=== PATIENT | female | born 1955 | race Caucasian/White ===

== ENCOUNTER 2020-11-10 17:37 | Inpatient (IN) | payer BC, MEDICAID, SELFPAY ==
[~2020-11-10] VITALS: Ht 165.1 cm; Wt 56.2 kg
[2020-11-10] MEDS: cefTRIAXone 1 GM IVPB PREMIX 50 ML IV SCH (00:30)
[2020-11-10 17:54] VITALS: BP_SYST 152
--- NOTE | 2020-11-10 17:56 | NUR ---
Pt brought by self,A&Ox4, pt presents to ER with SOB, congestion x 3 weeks, low O2 of 87 % room air , afebrile, skin pink and warm, cap refill <3, ambulatory , speaking in full sentences, MD notified
--- NOTE | 2020-11-10 17:58 | NUR ---
Pt placed on 2L NC since O2 87-88% room air, pt A&OxMD Roc notified, awaiting for med availability.
--- NOTE | 2020-11-10 17:59 | NUR ---
Sonja Covid test sent to lab at this time.
--- NOTE | 2020-11-10 18:05 | NUR ---
Dr Bolden evaluating patient in the tent
[2020-11-10] MEDS ORDERED: ENOXAPARIN SODIUM 60 MG/0.6 ML SYRINGE SUBCUT ONE (18:15)
[2020-11-10] MEDS ORDERED: AZITHROMYCIN 500 MG in NS 250 ML IV ONE (18:15)
[2020-11-10] MEDS ORDERED: DEXAMETHASONE SOD PHOSPHATE 4 MG/ML VIAL IVP ONE (18:15)
--- NOTE | 2020-11-10 18:18 | NUR ---
Report given to Idalia CADET
--- NOTE | 2020-11-10 18:35 | NUR ---
# 20 gauge angiocath placed to LAC. Use of asceptic technique. Opsite placed over site. Blood return noted. Blood, CULTURES AND LACTIC ACID for lab drawn from site. Flushed with 10 cc of normal saline. No evidence of infiltration noted. Patient tolerated well.
--- NOTE | 2020-11-10 18:42 | NUR ---
Oxygen applied at 4 L per minute per NC. O2 sats 95% by pulse oximetry.
[2020-11-10 19:04] LABS: BASOPHILS # (AUTO) 0.1 K/uL (0.0-0.2); BASOPHILS % (AUTO) 1.1 % (0.0-2.0); EOSINOPHILS % (AUTO) 0.5 % (0.0-4.0); HEMATOCRIT 40.1 % (36-48); HEMOGLOBIN 13.6 g/dL (12.0-16.0); LYMPHOCYTES # (AUTO) 1.2 K/uL (1.0-5.5); LYMPHOCYTES % (AUTO) 13.3 % (20.5-51.5); MEAN CORPUSCULAR HEMOGLOBIN 29 pg (27-31); MEAN CORPUSCULAR HGB CONC 34 % (32-36); MEAN CORPUSCULAR VOLUME 86 fL (79.0-98.0); MONOCYTES # (AUTO) 0.6 K/uL (0.0-1.0); NEUTROPHILS # (AUTO) 6.8 K/uL (1.8-7.7); NEUTROPHILS % (AUTO) 78.1 % (40.0-70.0); RED BLOOD CELL COUNT(AUTO) 4.65 MIL/uL (4.2-6.2); RED CELL DISTRIBUTION WIDTH 14.2 % (9.0-15.0); WHITE BLOOD COUNT (AUTO) 8.7 K/uL (4.8-10.8)
[2020-11-10 19:08] LABS: CREATININE 0.74 mg/dL (0.55-1.30)
[2020-11-10 19:10] LABS: PLATELET COUNT (AUTO) 815 K/uL (130-430)
--- NOTE | 2020-11-10 19:10 | NUR ---
critical lab reporting - platelets 815. aware.
[2020-11-10 19:22] LABS: ALBUMIN 2.8 g/dL (3.4-4.8); TOTAL BILIRUBIN 0.6 mg/dL (0.0-1.0)
[2020-11-10 19:31] LABS: FIBRINOGEN 941 mg/dL (200-400)
[2020-11-10] MEDS ORDERED: DEXAMETHASONE SOD PHOSPHATE 10 MG/ML VIAL ONE (19:35)
[2020-11-10] MEDS ORDERED: AZITHROMYCIN 500 MG/VIAL (ZITHROMAX) IV ONE (19:35)
--- NOTE | 2020-11-10 19:50 | NUR ---
PT TALKING ON HER PHONE MEDS GIVEN ORDERED
[2020-11-10 19:53] LABS: POTASSIUM 2.8 mmol/L (3.5-5.1)
[2020-11-10] MEDS ORDERED: KCL 20 mEq in 100 mL (PREMIX) 100 ML IV ONE (20:00)
[2020-11-10 20:02] LABS: C-REACTIVE PROTEIN QUANT 25.6 mg/dL (0-0.5)
--- NOTE | 2020-11-10 21:15 | NUR ---
Admit orders obtained from Dr. Khan
[2020-11-10 23:06] LABS: ERYTHROCYTE SEDIMENTATION RATE 91 MM/HR (0-20)
[2020-11-10] MEDS ORDERED: ONDANSETRON HCL 4 MG/2 ML VIAL IVP PRN (23:30)
[2020-11-10] MEDS ORDERED: ACETAMINOPHEN 325 MG TABLET PO PRN (23:30)
[2020-11-10] MEDS ORDERED: HYDROcodone/ACETAMIN 10-325 MG TAB PO PRN (23:30)
[2020-11-10] MEDS ORDERED: NALOXONE HCL 0.4 MG/ML AMP (NARCAN) IVP PRN ×2 (23:30)
[2020-11-10] MEDS ORDERED: LORazepam 2 MG/ML VIAL IVP PRN (23:30)
[2020-11-10] MEDS ORDERED: ALBUTEROL SULFATE 0.083% 2.5 MG/3 ML VIAL.NEB INH PRN (23:30)
[2020-11-10] MEDS ORDERED: AZITHROMYCIN 500 MG in NS 250 ML IV SCH (23:30)
[2020-11-10] MEDS ORDERED: HYDROcodone/ACETAMIN 5-325 MG TAB (NORCO/ VICODIN) PO PRN (23:30)
--- NOTE | 2020-11-10 23:40 | NUR ---
PT ADMIT TO [id number]
[2020-11-10] MEDS ORDERED: KCL 40 mEq in 100 mL (PREMIX) 100 ML IV ONE (23:45)
[2020-11-11] VITALS: BP_SYST 121
--- NOTE | 2020-11-11 00:03 | NUR ---
PT TRANSFERRED TO TELE RM 117B VIA [facility] WITH RN PT ON MONITORB BEDSIDE REPORT GIVEN STABLE
--- NOTE | 2020-11-11 00:10 | NUR ---
ADMISSION NOTE Received patient from ER via gurney. Patient admitted with diagnosis of COVID/PNA. Patient is awake, alert, oriented X 4. Patient oriented to hospital room, call light, toileting, pain management and safety-teach back done.Personal belongings checked and Belongings List documented. Call light within reach. Will continue to monitor.
--- NOTE | 2020-11-11 00:45 | NUR ---
IV antibiotic started. patient is tolerating well.
[2020-11-11] MEDS ORDERED: KCL 20 mEq in NS 1000 mL 1,000 ML IV SCH (01:00)
[2020-11-11] MEDS ORDERED: cefTRIAXone 1 GM IVPB PREMIX 50 ML IV ONE (01:08)
[2020-11-11 01:09] VITALS: BP_SYST 144
--- NOTE | 2020-11-11 02:59 | NUR ---
CONSULT: CONSULT CALLED FOR DR. MARTINE Elmore SPOKE WITH SAGAR SOSA REASON FOR CONSULT: PNEUMONI REQUESTING CONSULT: DR. 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
[2020-11-11] MEDS: NORMAL SALINE 5 ML DISP.SYRIN IVF SCH ×3 (03:08→21:31)
[2020-11-11] MEDS ORDERED: KCL 40 mEq in 100 mL (PREMIX) 100 ML IV ONE (03:15)
--- NOTE | 2020-11-11 03:15 | NUR ---
IV POTASSIUM STARTED. PATIENT REPORTS BURNING SENSATION AT IV SITE, DECREASED THE RATE. PROVIDED ICE BAG. PATIENT TOLERATED WELL. WILL CONTINUE TO MONITOR.
[2020-11-11 05:39] VITALS: BP_SYST 144
[2020-11-11] MEDS ORDERED: NORMAL SALINE 5 ML DISP.SYRIN IVF SCH (06:00)
--- NOTE | 2020-11-11 06:49 | NUR ---
CLOSING NOTE: PATIENT IS IN BED, AWAKE. RESPIRATION IS UNLABORED AND SYMMETRICAL. NO S/S ACUTE DISTRESS NOTED. SAFETY,FALL, CONTACT, AND DROPLET PRECAUTION MAINTAINED. CALL LIGHT IS WITHIN PATIENT REACH. ALL NEEDS MET THROUGHOUT SHIFT. WILL ENDORSE PATIENT'S PLAN OF CARE TO DAY SHIFT RN.
[2020-11-11] MEDS: IPRATROPIUM BROM 0.5 MG/2.5 ML VIAL.NEB (ATROVENT) INH SCH ×5 (07:00→23:00)
[2020-11-11 07:15] LABS: BASOPHILS % (AUTO) 0.4 % (0.0-2.0); HEMATOCRIT 37.4 % (36-48); HEMOGLOBIN 12.6 g/dL (12.0-16.0); LYMPHOCYTES % (AUTO) 13.5 % (20.5-51.5); MEAN CORPUSCULAR HEMOGLOBIN 29 pg (27-31); MEAN CORPUSCULAR HGB CONC 34 % (32-36); MEAN CORPUSCULAR VOLUME 87 fL (79.0-98.0); MONOCYTES # (AUTO) 0.2 K/uL (0.0-1.0); MONOCYTES % (AUTO) 2.4 % (1.7-9.3); NEUTROPHILS % (AUTO) 83.7 % (40.0-70.0); RED BLOOD CELL COUNT(AUTO) 4.32 MIL/uL (4.2-6.2); RED CELL DISTRIBUTION WIDTH 13.9 % (9.0-15.0); WHITE BLOOD COUNT (AUTO) 7.2 K/uL (4.8-10.8)
[2020-11-11 07:52] LABS: PLATELET COUNT (AUTO) 791 K/uL (130-430)
--- NOTE | 2020-11-11 08:15 | NUR ---
ASSUMPTION OF CARE: RECEIVED PT A/A/OX4, DX:INADEQUATE VENTILATION, R/T COVID/PNU, AFEBRILE, VSS, NO S/S OF DISTRESS, BREATH SOUNDS ARE DIMINISHED THROUGHOUT LUNG FIELD, UNLABORED, SATURATING 90% ON 4L VIA NC, IV SITE INTACT, PATENT, NO REDNESS OR SWELLING, BRP, REORIENTED TO UNIT, CALL LIGHT PLACED WITHIN REACH, WILL CONT' TO MONITOR AND ASSESS.
[2020-11-11 08:18] LABS: ALBUMIN 2.3 g/dL (3.4-4.8); CALCIUM 9.1 mg/dL (8.4-11.0); CREATININE 0.56 mg/dL (0.55-1.30); POTASSIUM 4.1 mmol/L (3.5-5.1); TOTAL BILIRUBIN 0.3 mg/dL (0.0-1.0)
[2020-11-11] MEDS ORDERED: ENOXAPARIN SODIUM 60 MG/0.6 ML SYRINGE SUBCUT ONE (13:00)
[2020-11-11] MEDS: DEXAMETHASONE SOD PHOSPHATE 10 MG/ML VIAL IVP SCH (13:23)
[2020-11-11 16:00] VITALS: BP_SYST 143
--- NOTE | 2020-11-11 18:00 | NUR ---
CLOSING NOTES: PT REMAINS STABLE, NO SIGNIFICANT CHANGES NOTED, NEEDS MET, CALL LIGHT, WATER AND PERSONAL BELONGINGSAT BEDSIDE, WITHIN REACH, WILL CONT' TO MONITOR AND ASSESS.
[2020-11-11 19:00] VITALS: BP_SYST 127
--- NOTE | 2020-11-11 19:15 | NUR ---
change of shift.pt.presents isolation status;droplet covid 19+status.pt.presents quiescent affect;calm,resting.no c/o pain, nausea.pt.capable to ambulate/reposition self.pt.receiving the administration o2 therapy via nasal cannulae administered@ the rate 4l/min.pt.presents iv access location;lt.hand;24g iv lock.general status stable.respiratory status stable.call light/ telephone w/in access of the pt.
[2020-11-11 20:00] VITALS: BP_SYST 127
--- NOTE | 2020-11-11 20:00 | NUR ---
pt.assessed.v/s assessed values w/in normal limits.no c/o pain,nausea.i have apprised the pt.that snacks/beverages are available w/in the shift.no requests posited@this hour.iv access intact;patent iv lock.general status stable.respiratory status stable;unlabored:02-sat%=94%.pt.capable to reposition self.call light/telephone w/in access of the pt.
[2020-11-11] MEDS ORDERED: ENOXAPARIN SODIUM 80 MG/0.8 ML SYRINGE SUBCUT SCH (21:00)
--- NOTE | 2020-11-11 21:00 | NUR ---
2100pmedications administration.pt.capable to ingest the po medications w/out difficulty. Addendum: 11/12/20 at 0445 by Jeremiah Last RN i have administered rocephin abx ivpb.
[2020-11-11] MEDS: AZITHROMYCIN 500 MG in NS 250 ML IV SCH (21:30)
[2020-11-11] MEDS: ENOXAPARIN SODIUM 60 MG/0.6 ML SYRINGE SUBCUT SCH (21:31)
--- NOTE | 2020-11-11 22:00 | NUR ---
pt.assessed.pt.presents quiescent affect calm,resting.no c/o pain,nausea.pt.requested medication sleep.i have administered trazodone.i have administered zithromax abx ivpb via the iv access peripheral line.call light/telephone w/in access of the pt.
[2020-11-11] MEDS: traZODone HCL 50 MG TABLET (DESYREL) PO PRN (22:02)
[2020-11-11] MEDS: cefTRIAXone 1 GM IVPB PREMIX 50 ML IV SCH (23:30)
[2020-11-12] VITALS: BP_SYST 121
--- NOTE | 2020-11-12 | NUR ---
pt.assessed.v/s assessed values w/in normal limits.no c/o pain,nausea.no requests posited@this hour.iv access intact;patent iv lock. pt.capable to reposition self.general status stable.respiratory status stable;unlabored.o2-sat%=94%.call light/telephone w/in access of the pt.
--- NOTE | 2020-11-12 02:00 | NUR ---
pt.assessed.pt.presents quiescent affect;calm,somnolent.per flacc pain mgx pt.absent facial grimaces/body posturing. iv access intact;patent iv access intact;patent.pt.capable to reposition self.call light/telephone w/in access of the pt. 02-mon%=94%
[2020-11-12] MEDS: IPRATROPIUM BROM 0.5 MG/2.5 ML VIAL.NEB (ATROVENT) INH SCH (03:00)
--- NOTE | 2020-11-12 04:00 | NUR ---
pt.assessed.pt.presents quiescent affect;calm,somnolent.per flacc pain mgx pt.absent facial grimaces/body posturing. iv access intact;patent.iv lock.pt.capable to reposition self.general status stable;respiratory status stable;unlabored: 02-sat%=94%.call light/telephone w/in access of the pt.
[2020-11-12] MEDS: NORMAL SALINE 5 ML DISP.SYRIN IVF SCH ×3 (05:02→22:00)
--- NOTE | 2020-11-12 06:15 | NUR ---
pt.assessed.pt.presents quiescent affect;calm,resting. no c/o pain,nausea.no requests posited@this hour.pt.capable to reposition self.call light/telephone w/in access of the pt.
[2020-11-12] MEDS ORDERED: IPRATROPIUM BROM 0.5 MG/2.5 ML VIAL.NEB (ATROVENT) INH PRN (07:00)
[2020-11-12] MEDS: ALBUTEROL MDI INHALATION 8 GM INH INH SCH ×3 (07:00→15:52)
[2020-11-12 07:48] LABS: CALCIUM 9.2 mg/dL (8.4-11.0); CREATININE 0.67 mg/dL (0.55-1.30); POTASSIUM 3.6 mmol/L (3.5-5.1)
[2020-11-12 07:58] LABS: BASOPHILS # (AUTO) 0.1 K/uL (0.0-0.2); BASOPHILS % (AUTO) 0.9 % (0.0-2.0); HEMATOCRIT 35.8 % (36-48); HEMOGLOBIN 12.1 g/dL (12.0-16.0); LYMPHOCYTES # (AUTO) 1.8 K/uL (1.0-5.5); LYMPHOCYTES % (AUTO) 20.5 % (20.5-51.5); MEAN CORPUSCULAR HEMOGLOBIN 29 pg (27-31); MEAN CORPUSCULAR HGB CONC 34 % (32-36); MEAN CORPUSCULAR VOLUME 87 fL (79.0-98.0); MONOCYTES % (AUTO) 10.7 % (1.7-9.3); NEUTROPHILS # (AUTO) 6.1 K/uL (1.8-7.7); RED BLOOD CELL COUNT(AUTO) 4.11 MIL/uL (4.2-6.2); RED CELL DISTRIBUTION WIDTH 14.5 % (9.0-15.0); WHITE BLOOD COUNT (AUTO) 8.9 K/uL (4.8-10.8)
--- NOTE | 2020-11-12 08:00 | NUR ---
ASSUMPTION OF CARE: RECEIVED PT A/A/OX4, DX:INADEQUATE VENTILATION, R/T COVID/PNU, AFEBRILE, VSS, NO S/S OF DISTRESS, BREATH SOUNDS ARE DIMINISHED THROUGHOUT LUNG FIELD, UNLABORED, SATURATING 93% ON 4L VIA NC, IV SITE INTACT, PATENT, NO REDNESS OR SWELLING, BRP, REORIENTED TO UNIT, CALL LIGHT PLACED WITHIN REACH, WILL CONT' TO MONITOR AND ASSESS.
[2020-11-12 08:31] VITALS: BP_SYST 144
[2020-11-12 08:35] LABS: C-REACTIVE PROTEIN QUANT 9.5 mg/dL (0-0.5)
[2020-11-12 08:39] LABS: PLATELET COUNT (AUTO) 886 K/uL (130-430)
--- NOTE | 2020-11-12 09:08 | NUR ---
PAGED PAGED FADI ASHTON AT [phone] SPOKE WITH EXCHANGE.
[2020-11-12] MEDS: ENOXAPARIN SODIUM 60 MG/0.6 ML SYRINGE SUBCUT SCH ×2 (09:20→21:36)
[2020-11-12 10:13] LABS: FERRITIN 431 ng/mL (15-150)
[2020-11-12 10:56] LABS: ERYTHROCYTE SEDIMENTATION RATE 87 MM/HR (0-20)
[2020-11-12 11:11] LABS: NEUTROPHILS % (AUTO) 67.9 % (40.0-70.0)
[2020-11-12] MEDS: DEXAMETHASONE SOD PHOSPHATE 10 MG/ML VIAL IVP SCH (13:14)
[2020-11-12 15:56] VITALS: BP_SYST 136
--- NOTE | 2020-11-12 18:00 | NUR ---
CLOSING NOTES: PT REMAINS STABLE, NO SIGNIFICANT CHANGES NOTED, NEEDS MET, CALL LIGHT, WATER AND PERSONAL BELONGINGSAT BEDSIDE, WITHIN REACH, WILL CONT' TO MONITOR AND ASSESS.
--- NOTE | 2020-11-12 19:35 | NUR ---
ROUNDS PATIENT RESTING COMFORTABLY IN BED, NOT IN DISTRESS, VITALS STABLE. DENIES ANY PAIN AND DISCOMFORT AT THIS TIME. ASSESSMENT DONE AND DOCUEMNTED. SEE FLOWSHEET. NEEDS ATTENDED TO. SAFETY MEASURES MAINTAINED. CALL LIGHT PLACED WITHIN REACH.
[2020-11-12 20:00] VITALS: BP_SYST 151
--- NOTE | 2020-11-12 21:13 | NUR ---
MEDICATION DUE MEDICATIONS GIVEN SCHEDULED, TOLERATED WELL. WILL CONTINUE TO MONITOR.
[2020-11-12] MEDS: AZITHROMYCIN 500 MG in NS 250 ML IV SCH (21:33)
[2020-11-12] MEDS: cefTRIAXone 1 GM IVPB PREMIX 50 ML IV SCH (23:30)
[2020-11-13] VITALS: BP_SYST 156
--- NOTE | 2020-11-13 00:13 | NUR ---
PATIENT RESTING: Patient resting quietly. No acute distress noted. Vital signs within normal range.
--- NOTE | 2020-11-13 02:11 | NUR ---
ROUNDS PATIENT ASLEEP, RESPIRATIONS EVEN AND UNLABORED, WILL CONTINUE TO MONITOR.
--- NOTE | 2020-11-13 04:15 | NUR ---
ROUNDS PATIENT ASLEEP, NO SOB NOTED, RESPIRATIONS EVEN AND UNLABORED. WILL CONTINUE TO MONITOR.
[2020-11-13] MEDS: NORMAL SALINE 5 ML DISP.SYRIN IVF SCH ×3 (05:28→22:00)
--- NOTE | 2020-11-13 06:50 | NUR ---
CLOSING NOTES PATIENT AWAKE, NO COMPLAINTS AT THIS TIME, NEEDS ATTENDED TO. SAFETY MEASURES MAINTAINED. CALL LIGHT PLACED WITHIN REACH.
--- NOTE | 2020-11-13 07:46 | NUR ---
NOTIFIED BIBI PAL RN TO TOYA CRUZ RN THAT THE SATURATION ISN'T SHOWING TO THE PATINET'S PULSE OX.
[2020-11-13 08:00] VITALS: BP_SYST 152
[2020-11-13 08:11] LABS: BASOPHILS # (AUTO) 0.1 K/uL (0.0-0.2); BASOPHILS % (AUTO) 1.1 % (0.0-2.0); HEMATOCRIT 35.2 % (36-48); HEMOGLOBIN 12.1 g/dL (12.0-16.0); LYMPHOCYTES # (AUTO) 1.9 K/uL (1.0-5.5); LYMPHOCYTES % (AUTO) 19.2 % (20.5-51.5); MEAN CORPUSCULAR HEMOGLOBIN 30 pg (27-31); MEAN CORPUSCULAR HGB CONC 34 % (32-36); MEAN CORPUSCULAR VOLUME 86 fL (79.0-98.0); MONOCYTES # (AUTO) 0.9 K/uL (0.0-1.0); MONOCYTES % (AUTO) 8.4 % (1.7-9.3); NEUTROPHILS # (AUTO) 7.2 K/uL (1.8-7.7); NEUTROPHILS % (AUTO) 71.3 % (40.0-70.0); RED BLOOD CELL COUNT(AUTO) 4.09 MIL/uL (4.2-6.2); RED CELL DISTRIBUTION WIDTH 14.2 % (9.0-15.0); WHITE BLOOD COUNT (AUTO) 10.1 K/uL (4.8-10.8)
[2020-11-13 09:01] LABS: PLATELET COUNT (AUTO) 863 K/uL (130-430)
[2020-11-13] MEDS: ALBUTEROL MDI INHALATION 8 GM INH INH SCH ×2 (09:10→20:27)
[2020-11-13] MEDS: ENOXAPARIN SODIUM 60 MG/0.6 ML SYRINGE SUBCUT SCH ×2 (09:24→21:00)
[2020-11-13 09:33] LABS: CALCIUM 9.1 mg/dL (8.4-11.0); CREATININE 0.6 mg/dL (0.55-1.30); POTASSIUM 4.5 mmol/L (3.5-5.1)
[2020-11-13 12:00] VITALS: BP_SYST 145
[2020-11-13] MEDS: DEXAMETHASONE SOD PHOSPHATE 10 MG/ML VIAL IVP SCH (13:00)
--- NOTE | 2020-11-13 13:00 | NUR ---
Note Pt was given Convalescent Plasma at 1030am, within an hour at 1130am pt started experiencing itching on both hands. Plasma stopped immediately and Dr Ramon padilla called at 1145am. Remaining Plasma was returned to Blood Bank. Waiting for Dr Navarro to call back. Vital signs were taken - WNL. Dr Navarro called again at 1300 and order given for Benadryl IVP X1. No needs noted at this time. Call light within reach.
[2020-11-13] MEDS ORDERED: DIPHENHYDRAMINE INJ 50 MG/ML VIAL ONE (13:55)
[2020-11-13 16:00] VITALS: BP_SYST 142
--- NOTE | 2020-11-13 16:03 | NUR ---
P.T. NOTES P.T. EVAL COMPLETED; REFER TO EVAL FOR DETAILS; O2 N/C 4L=93% AT REST, 80s W/ EXERTION; 6L=92% W/ EXERTION; ENDORSED TO NURSING.
--- NOTE | 2020-11-13 17:00 | NUR ---
Note Dr Mata (Pul) on the floor to assess pt.
--- NOTE | 2020-11-13 17:40 | NUR ---
Note Pt lying down on side of bed talking on the cellphone all shift. No needs noted at this time. Call light within reach. Pt has had O2 at 4L/nc on all shift. Tele unit attached and intact all shift.
--- NOTE | 2020-11-13 18:33 | NUR ---
Note Pt was checked on q1' and PRN for needs and care all shift. Call light within reach.
--- NOTE | 2020-11-13 19:24 | NUR ---
OPENING NOTE: RECEIVED SBAR REPORT FROM DAY SHIFT RN. PATIENT IS AWAKE, ALERT AND ORIENTED X 4. NO S/S ACUTE DISTRESS NOTED AT THIS TIME. DENIES PAIN. RESPIRATION IS EVEN AND UNLABORED ON 4 L OF NC. SAFETY,FALL AND ISOLATION PRECAUTIONS IN PLACE. CALL LIGHT IS WITH PATIENT. WILL CONTINUE TO MONITOR.
--- NOTE | 2020-11-13 19:29 | NUR ---
NOTE MEDITECH DOWN 11AM TO 1510 TODAY.
[2020-11-13 20:00] VITALS: BP_SYST 147
--- NOTE | 2020-11-13 20:30 | NUR ---
MED PASS: PATIENT GIVEN SCHEDULED MEDS. MEDICATIONS INDICATIONS AND POTENTIAL SIDE EFFECTS EXPLAINED TO PATIENT. PATIENT VERBALIZED UNDERSTANDING. NO S/S ACUTE DISTRESS NOTED AT THIS TIME. WILL CONTINUE TO MONITOR.
[2020-11-13] MEDS: AZITHROMYCIN 500 MG in NS 250 ML IV SCH (21:00)
[2020-11-13 22:06] LABS: MYCOPLASMA PNEUMONIAE IgM <770 U/mL (0-769)
--- NOTE | 2020-11-13 22:30 | NUR ---
RN ROUNDS: PATIENT IS IN BED, AWAKE. NO S/S ACUTE DISTRESS NOTED. BREATHING IS EVEN AND UNLABORED ON 4 L OF OXYGEN VIA NC. WILL MONITOR PATIENT FOR ANY CHANGES.
[2020-11-13] MEDS: cefTRIAXone 1 GM IVPB PREMIX 50 ML IV SCH (23:30)
[2020-11-14] VITALS: BP_SYST 139
--- NOTE | 2020-11-14 00:20 | NUR ---
RN ROUNDS: PATIENT IS IN BED, SLEEPING. NO S/S ACUTE DISTRESS NOTED. WILL MONITOR PATIENT FOR ANY CHANGES.
[2020-11-14] MEDS: ALBUTEROL MDI INHALATION 8 GM INH INH SCH ×5 (00:26→19:40)
--- NOTE | 2020-11-14 03:00 | NUR ---
RN ROUNDS: PATIENT IS IN BED, AWAKE. DENIES PAIN. RESPIRATION IS EVEN AND UNLABORED. SAFETY AND FALL PRECAUTIONS IN PLACE. CALL LIGHT IS WITH PATIENT. WILL MONITOR PATIENT.
[2020-11-14] MEDS: NORMAL SALINE 5 ML DISP.SYRIN IVF SCH ×3 (05:49→22:00)
--- NOTE | 2020-11-14 06:39 | NUR ---
CLOSING NOTE: PATIENT IS IN BED, AWAKE. RESPIRATION IS UNLABORED AND SYMMETRICAL. PATIENT REMAINED ON 4 L OF O2 VIA NC. IV FLUSHES WELL, NO SIGN OF INFILTRATION NOTED. NO S/S ACUTE DISTRESS NOTED. SAFETY,FALL, CONTACT, AND DROPLET PRECAUTION MAINTAINED. CALL LIGHT IS WITHIN PATIENT REACH. ALL NEEDS MET THROUGHOUT SHIFT. WILL ENDORSE PATIENT'S PLAN OF CARE TO DAY SHIFT RN.
[2020-11-14 07:36] LABS: ERYTHROCYTE SEDIMENTATION RATE 86 MM/HR (0-20)
[2020-11-14 07:43] LABS: BASOPHILS # (AUTO) 0.1 K/uL (0.0-0.2); BASOPHILS % (AUTO) 0.8 % (0.0-2.0); EOSINOPHILS % (AUTO) 0.1 % (0.0-4.0); HEMOGLOBIN 12.4 g/dL (12.0-16.0); LYMPHOCYTES # (AUTO) 1.5 K/uL (1.0-5.5); LYMPHOCYTES % (AUTO) 17.4 % (20.5-51.5); MEAN CORPUSCULAR HEMOGLOBIN 29 pg (27-31); MEAN CORPUSCULAR HGB CONC 34 % (32-36); MEAN CORPUSCULAR VOLUME 86 fL (79.0-98.0); MONOCYTES # (AUTO) 0.8 K/uL (0.0-1.0); NEUTROPHILS # (AUTO) 6.2 K/uL (1.8-7.7); NEUTROPHILS % (AUTO) 72.7 % (40.0-70.0); RED BLOOD CELL COUNT(AUTO) 4.29 MIL/uL (4.2-6.2); RED CELL DISTRIBUTION WIDTH 14.5 % (9.0-15.0); WHITE BLOOD COUNT (AUTO) 8.6 K/uL (4.8-10.8)
[2020-11-14 08:00] VITALS: BP_SYST 141
[2020-11-14 08:06] LABS: C-REACTIVE PROTEIN QUANT 8.7 mg/dL (0-0.5)
[2020-11-14 08:46] LABS: CALCIUM 8.9 mg/dL (8.4-11.0); CREATININE 0.65 mg/dL (0.55-1.30); POTASSIUM 4.1 mmol/L (3.5-5.1)
[2020-11-14] MEDS: ENOXAPARIN SODIUM 60 MG/0.6 ML SYRINGE SUBCUT SCH ×2 (08:49→21:00)
[2020-11-14 08:51] LABS: C-REACTIVE PROTEIN QUANT 4.8 mg/dL (0-0.5)
[2020-11-14 10:20] LABS: PLATELET COUNT (AUTO) 841 K/uL (130-430)
--- NOTE | 2020-11-14 11:06 | NUR ---
DC Barriers: pt had reaction to Conv Plasma yesterday, currently on 5L nc at 95%, Decadron and Enolxaparin. Continue treatments and monitoring Covid s/s. DC Plan eval is pending, pt is not stable for dc.
[2020-11-14 11:38] LABS: ERYTHROCYTE SEDIMENTATION RATE 80 MM/HR (0-20)
[2020-11-14] MEDS: DEXAMETHASONE SOD PHOSPHATE 10 MG/ML VIAL IVP SCH (14:51)
[2020-11-14 16:10] VITALS: BP_SYST 141
[2020-11-14 16:51] VITALS: BP_SYST 141
--- NOTE | 2020-11-14 19:20 | NUR ---
OPENING NOTE: RECEIVED SBAR REPORT FROM DAY SHIFT RN. PATIENT IS AWAKE, ALERT AND ORIENTED X 4. NO S/S ACUTE DISTRESS NOTED AT THIS TIME. DENIES PAIN. RESPIRATION IS EVEN AND UNLABORED. TOLERATING 10 L OF OXYGEN VOA OXYMIZER. SAFETY,FALL AND ISOLATION PRECAUTIONS IN PLACE. CALL LIGHT IS WITH PATIENT. WILL CONTINUE TO MONITOR.
[2020-11-14 20:00] VITALS: BP_SYST 131
[2020-11-14] MEDS: AZITHROMYCIN 500 MG in NS 250 ML IV SCH (21:00)
--- NOTE | 2020-11-14 21:00 | NUR ---
MED PASS: PATIENT GIVEN SCHEDULED MEDS. MEDICATIONS INDICATIONS AND POTENTIAL SIDE EFFECTS EXPLAINED TO PATIENT. PATIENT VERBALIZED UNDERSTANDING. NO S/S ACUTE DISTRESS NOTED AT THIS TIME. SAFETY.FALL, AND ISOLATION PRECAUTIONS IN PLACE. CALL LIGHT IS WITH PATIENT.WILL CONTINUE TO MONITOR.
[2020-11-14] MEDS: cefTRIAXone 1 GM IVPB PREMIX 50 ML IV SCH (23:30)
[2020-11-15] VITALS: BP_SYST 147
--- NOTE | 2020-11-15 00:10 | NUR ---
RN ROUNDS: PATIENT IS IN BED, AWAKE. NO S/S ACUTE DISTRESS NOTED. BREATHING IS EVEN AND UNLABORED ON 10 L OF OXYGEN VIA OXYMIZER. WILL MONITOR PATIENT FOR ANY CHANGES.
[2020-11-15] MEDS: cefTRIAXone 1 GM IVPB PREMIX 50 ML IV SCH (00:30)
[2020-11-15] MEDS: ALBUTEROL MDI INHALATION 8 GM INH INH SCH ×5 (00:55→19:50)
--- NOTE | 2020-11-15 02:45 | NUR ---
RN ROUNDS: PATIENT IS IN BED, AWAKE. DENIES PAIN. RESPIRATION IS EVEN AND UNLABORED. TOLERATING 10 L OF OXYGEN VIA OXYMIZER.SAFETY AND FALL PRECAUTIONS IN PLACE. CALL LIGHT IS WITH PATIENT. WILL MONITOR PATIENT.
--- NOTE | 2020-11-15 04:30 | NUR ---
RN ROUNDS: PATIENT IS IN BED, AWAKE. RESPIRATION IS EVEN AND UNLABORED. SAFETY AND FALL PRECAUTIONS IN PLACE. CALL LIGHT IS WITH PATIENT. WILL MONITOR PATIENT.
[2020-11-15] MEDS: NORMAL SALINE 5 ML DISP.SYRIN IVF SCH ×3 (06:41→21:30)
--- NOTE | 2020-11-15 06:44 | NUR ---
CLOSING NOTE: PATIENT IS IN BED, ALERT AND ORIENTED X 4. NO S/S ACUTE DISTRESS NOTED. IV SALINE LOCK ON R HAND. NO SIGN OF INFILTRATION OBSERVED. BREATHING IS EVEN AND UNLABORED. PATIENT REMAINED ON 10 L OF OXYGEN VIA OXYMIZER. SAFETY,FALL, AND ISOLATION PRECAUTIONS IN PLACE. CALL LIGHT IS WITH PATIENT. ALL NEEDS MET THROUGHOUT SHIFT. WILL ENDORSE PATIENT CARE TO DAY SHIFT RN.
[2020-11-15 07:52] VITALS: BP_SYST 136
[2020-11-15 08:48] LABS: BASOPHILS # (AUTO) 0.1 K/uL (0.0-0.2); BASOPHILS % (AUTO) 0.7 % (0.0-2.0); EOSINOPHILS % (AUTO) 0.1 % (0.0-4.0); HEMOGLOBIN 13.6 g/dL (12.0-16.0); LYMPHOCYTES # (AUTO) 1.5 K/uL (1.0-5.5); LYMPHOCYTES % (AUTO) 18.2 % (20.5-51.5); MEAN CORPUSCULAR HEMOGLOBIN 30 pg (27-31); MEAN CORPUSCULAR HGB CONC 34 % (32-36); MEAN CORPUSCULAR VOLUME 87 fL (79.0-98.0); MONOCYTES # (AUTO) 0.6 K/uL (0.0-1.0); NEUTROPHILS # (AUTO) 5.8 K/uL (1.8-7.7); RED CELL DISTRIBUTION WIDTH 14.7 % (9.0-15.0)
[2020-11-15] MEDS: ENOXAPARIN SODIUM 60 MG/0.6 ML SYRINGE SUBCUT SCH ×2 (08:59→21:30)
[2020-11-15 09:15] LABS: PLATELET COUNT (AUTO) 894 K/uL (130-430)
[2020-11-15 09:16] LABS: CALCIUM 9.3 mg/dL (8.4-11.0); CREATININE 0.68 mg/dL (0.55-1.30); POTASSIUM 4.1 mmol/L (3.5-5.1)
[2020-11-15 11:23] VITALS: BP_SYST 134
[2020-11-15 11:30] LABS: ERYTHROCYTE SEDIMENTATION RATE 70 MM/HR (0-20)
[2020-11-15 12:26] LABS: C-REACTIVE PROTEIN QUANT 3.9 mg/dL (0-0.5)
[2020-11-15] MEDS: DEXAMETHASONE SOD PHOSPHATE 10 MG/ML VIAL IVP SCH (13:00)
[2020-11-15 16:41] VITALS: BP_SYST 131
--- NOTE | 2020-11-15 16:43 | NUR ---
encouraged pt to lay from side to side or proning position when sleeping. pt verbalized understanding.
--- NOTE | 2020-11-15 19:30 | NUR ---
OPENING NOTES RECEIVED REPORT FROM DAY SHIFT RN. PT RESTING IN BED, ALERT & ORIENTED X4. BREATHING EVEN AND UNLABORED TO OXYMIZER 10L, O2 SAT 92%. NO SIGNS OF RESPIRATORY DISTRESS NOTED. PT FAN ANY PAIN AT THIS TIME. IV ON LEFT HAND 24G INTACT, SL. NO SIGNS OF INFILTRATION NOTED. CALL LIGHT WITHIN REACH. BED LOCKED IN LOWEST POSITION. SAFETY, FALL, AND ISOLATION PRECAUTIONS MAINTAINED. WILL CONTINUE TO MONITOR.
[2020-11-15 20:00] VITALS: BP_SYST 120
[2020-11-15] MEDS: AZITHROMYCIN 500 MG in NS 250 ML IV SCH (21:30)
[2020-11-16] VITALS: BP_SYST 142
[2020-11-16] MEDS: ALBUTEROL MDI INHALATION 8 GM INH INH SCH ×6 (03:00→23:08)
[2020-11-16] MEDS: NORMAL SALINE 5 ML DISP.SYRIN IVF SCH ×3 (05:30→21:15)
[2020-11-16 06:42] LABS: BASOPHILS % (AUTO) 0.5 % (0.0-2.0); EOSINOPHILS % (AUTO) 0.1 % (0.0-4.0); HEMATOCRIT 37.1 % (36-48); HEMOGLOBIN 12.5 g/dL (12.0-16.0); LYMPHOCYTES # (AUTO) 1.6 K/uL (1.0-5.5); LYMPHOCYTES % (AUTO) 18.5 % (20.5-51.5); MEAN CORPUSCULAR HEMOGLOBIN 29 pg (27-31); MEAN CORPUSCULAR HGB CONC 34 % (32-36); MEAN CORPUSCULAR VOLUME 87 fL (79.0-98.0); MONOCYTES # (AUTO) 0.6 K/uL (0.0-1.0); MONOCYTES % (AUTO) 7.2 % (1.7-9.3); NEUTROPHILS # (AUTO) 6.2 K/uL (1.8-7.7); NEUTROPHILS % (AUTO) 73.7 % (40.0-70.0); RED BLOOD CELL COUNT(AUTO) 4.27 MIL/uL (4.2-6.2); RED CELL DISTRIBUTION WIDTH 14.5 % (9.0-15.0); WHITE BLOOD COUNT (AUTO) 8.4 K/uL (4.8-10.8)
--- NOTE | 2020-11-16 07:30 | NUR ---
OPENING NOTE RECEIVED SBAR FROM NIGHT RN, PATIENT IN BED, RESPIRATIONS EVEN, NON LABORED, BED IN LOW AND LOCKED POSITION CALL LIGHT WITHIN REACH
[2020-11-16 07:37] LABS: ALBUMIN 2.7 g/dL (3.4-4.8); CALCIUM 9.2 mg/dL (8.4-11.0); CREATININE 0.68 mg/dL (0.55-1.30); POTASSIUM 4.2 mmol/L (3.5-5.1); TOTAL BILIRUBIN 0.5 mg/dL (0.0-1.0)
[2020-11-16 08:00] VITALS: BP_SYST 94
[2020-11-16 08:30] LABS: ERYTHROCYTE SEDIMENTATION RATE 53 MM/HR (0-20)
[2020-11-16] MEDS: ENOXAPARIN SODIUM 60 MG/0.6 ML SYRINGE SUBCUT SCH ×2 (09:00→21:15)
[2020-11-16 09:39] LABS: PLATELET COUNT (AUTO) 828 K/uL (130-430)
[2020-11-16 11:51] LABS: C-REACTIVE PROTEIN QUANT 3.8 mg/dL (0-0.5)
[2020-11-16 12:00] VITALS: BP_SYST 100
--- NOTE | 2020-11-16 12:00 | NUR ---
NURSE NOTE PATIENT IN BED, RESPIRATIONS EVEN, NON LABORED, BED IN LOW AND LOCKED POSITION CALL LIGHT WITHIN REACH. PATIENT ON OXYMIZER O2, IV FLUSHED FREELY. PATIENT DENIES ANY PAIN OR DISCOMFORT
[2020-11-16] MEDS: DEXAMETHASONE SOD PHOSPHATE 10 MG/ML VIAL IVP SCH (13:04)
[2020-11-16 16:00] VITALS: BP_SYST 96
--- NOTE | 2020-11-16 19:00 | NUR ---
OPENING NOTES RECEIVED PATIENT RESTING IN BED, SITTING UP, NO SIGNS OF RESPIRATORY DISTRESS, 10 L OXYMIZER. IV SITE PATENT, DRESSING C/D/I. CALL LIGHT WITHIN REACH, BED ALARM REFUSED AFTER PATIENT DEMONSTRATES PROPER USAGE OF CALL LIGHT. BED AT LOWEST POSITION. WILL CONTINUE TO MONITOR.
--- NOTE | 2020-11-16 19:09 | NUR ---
CLOSING NOTE PROVIDED SBAR TO NIGHT RN, PATIENT IN BED, RESPIRATIONS EVEN, NON LABORED, BED IN LOW AND LOCKED POSITION CALL LIGHT WITHIN REACH. IV SALINE LOCKED, FLUSHED FREELY, ENDORSED CARE TO NIGHT RN
[2020-11-16 20:00] VITALS: BP_SYST 118
--- NOTE | 2020-11-16 20:50 | NUR ---
PAGED PAGED FADI ASHTON AT [phone] SPOKE WITH RICHELLE.
--- NOTE | 2020-11-16 21:30 | NUR ---
SPOKE TO DR. SALAS IN REGARDS TO ZITHROMAX 2100 DOSE THAT HAS REACHED THE STOP DATE AND ZITHROMAX NOT AVAILABLE AT THIS TIME. RELAYED THAT PHARMACY ALSO NOTED THAT PATIENT IS OK NOT TO RECEIVE THIS [address] SALAS WANTS TO START ZITHROMAX TOMORROW AND IS OK TO NOT PROVIDE TONIGHT'S DOSE.
[2020-11-16] MEDS: cefTRIAXone 1 GM IVPB PREMIX 50 ML IV SCH (23:10)
[2020-11-17 01:00] VITALS: BP_SYST 117
[2020-11-17] MEDS: ALBUTEROL MDI INHALATION 8 GM INH INH SCH ×5 (04:05→19:30)
--- NOTE | 2020-11-17 04:18 | NUR ---
PATIENT RESTING, EYES CLOSED. NO SIGNS OF RESPIRATORY DISTRESS NOTED. WILL CONTINUE TO MONITOR.
[2020-11-17] MEDS: NORMAL SALINE 5 ML DISP.SYRIN IVF SCH ×3 (06:55→21:00)
--- NOTE | 2020-11-17 07:10 | NUR ---
CLOSING NOTES PATIENT RESTING, NO SIGNS OF RESPIRATORY DISTRESS, 10 L OXYMIZER. IV SITE PATENT, DRESSING C/D/I. CALL LIGHT WITHIN REACH, BED ALARM REFUSED AFTER PATIENT DEMONSTRATES PROPER USAGE OF CALL LIGHT. BED AT LOWEST POSITION. ALL NEEDS MET THROUGHOUT SHIFT. NO COMPLAINTS OF SOB OR PAIN THROUGHOUT SHIFT. COVID ISOLATION PRECAUTIONS KEPT THROUGHOUT SHIFT. WILL ENDORSE CARE TO ONCOMING SHIFT.
[2020-11-17 07:15] LABS: BASOPHILS # (AUTO) 0.1 K/uL (0.0-0.2); BASOPHILS % (AUTO) 0.8 % (0.0-2.0); HEMATOCRIT 38.4 % (36-48); HEMOGLOBIN 13.1 g/dL (12.0-16.0); MONOCYTES # (AUTO) 0.7 K/uL (0.0-1.0); WHITE BLOOD COUNT (AUTO) 8.4 K/uL (4.8-10.8)
[2020-11-17 07:19] LABS: LYMPHOCYTES # (AUTO) 1.5 K/uL (1.0-5.5); LYMPHOCYTES % (AUTO) 18.3 % (20.5-51.5); MEAN CORPUSCULAR HEMOGLOBIN 29 pg (27-31); MEAN CORPUSCULAR HGB CONC 34 % (32-36); MEAN CORPUSCULAR VOLUME 86 fL (79.0-98.0); MONOCYTES % (AUTO) 7.9 % (1.7-9.3); NEUTROPHILS # (AUTO) 6.1 K/uL (1.8-7.7); PLATELET COUNT (AUTO) 825 K/uL (130-430); RED BLOOD CELL COUNT(AUTO) 4.45 MIL/uL (4.2-6.2); RED CELL DISTRIBUTION WIDTH 14.5 % (9.0-15.0)
--- NOTE | 2020-11-17 07:20 | NUR ---
opening note received sbar form night RN, patient in bed, respirations shallow, oxymizer o2, iv saline locked. Bed in low and locked position, call light within reach,
[2020-11-17 08:00] VITALS: BP_SYST 123
--- NOTE | 2020-11-17 09:05 | NUR ---
Nutrition Update Kannan scale 18 noted. Pt admitted for COVID positive, PNA Diet:Regular Diet BMI: 20.7 kg/m2 RD to follow per nutrition care standards.
[2020-11-17 10:03] LABS: CALCIUM 9.7 mg/dL (8.4-11.0); CREATININE 0.66 mg/dL (0.55-1.30); POTASSIUM 4.4 mmol/L (3.5-5.1)
[2020-11-17] MEDS: ENOXAPARIN SODIUM 60 MG/0.6 ML SYRINGE SUBCUT SCH ×2 (10:25→20:12)
[2020-11-17 12:00] VITALS: BP_SYST 110
--- NOTE | 2020-11-17 12:00 | NUR ---
nurse note patient in bed, respirations even, non labored, bed in low and locked position call light within reach, obtained vs, patient denies any pain or discomfort
[2020-11-17 12:33] LABS: ERYTHROCYTE SEDIMENTATION RATE 38 MM/HR (0-20)
[2020-11-17] MEDS: DEXAMETHASONE SOD PHOSPHATE 10 MG/ML VIAL IVP SCH (12:59)
[2020-11-17 13:23] LABS: C-REACTIVE PROTEIN QUANT 1.8 mg/dL (0-0.5)
[2020-11-17 16:00] VITALS: BP_SYST 103
--- NOTE | 2020-11-17 16:23 | NUR ---
nurse note assisted patient with bed bath, changed linens, and gown, bed in low and locked position call light within reach, patient denies any pain or discomfort. O2 10L nasal oximyzer, iv saline locked, flushed freely
--- NOTE | 2020-11-17 16:40 | NUR ---
Dietitian Recommendations *Recommend continue Regular Diet *Recommend add Ensure Enlive once daily to promote PO intake (350 kcal, 20 g protein) Please see Nutrition Assessment for details. EP,RD
[2020-11-17 16:42] VITALS: BP_SYST 103
--- NOTE | 2020-11-17 19:15 | NUR ---
closing note provided sbar to night RN, patient in bed, respirations even, non labored, bed in low and locked position, call light within reach, endorsed care to night RN
--- NOTE | 2020-11-17 19:30 | NUR ---
OPENING NOTES RECEIVED REPORT FROM DAY SHIFT RN. PT RESTING IN BED, ALERT & ORIENTED X4. BREATHING EVEN AND UNLABORED TO OXYMIZER AT 8L. NO S/S OF ACUTE DISTRESS NOTED. IV ON LEFT HAND 24G INTACT, NO SIGNS OF INFILTRATION NOTED. CALL LIGHT WITHIN REACH. SIDE RAILS UP X3. SAFETY AND ISOLATION PRECAUTIONS MAINTAINED. WILL CONTINUE TO MONITOR.
[2020-11-17 20:00] VITALS: BP_SYST 114
[2020-11-17] MEDS: cefTRIAXone 1 GM IVPB PREMIX 50 ML IV SCH (23:45)
[2020-11-18] VITALS: BP_SYST 123
[2020-11-18] MEDS: ALBUTEROL MDI INHALATION 8 GM INH INH SCH ×7 (00:16→23:24)
[2020-11-18] MEDS: NORMAL SALINE 5 ML DISP.SYRIN IVF SCH ×3 (05:30→21:00)
[2020-11-18 08:00] VITALS: BP_SYST 122
[2020-11-18] MEDS: ENOXAPARIN SODIUM 60 MG/0.6 ML SYRINGE SUBCUT SCH ×2 (08:00→20:30)
--- NOTE | 2020-11-18 08:00 | NUR ---
Opening note patient resting in bed, a/ox4, denies pain, patient is on 8L via Oxymizer at this time, tolerating well thus far, patient denies shortness of breath, IV line is patent - no s/s of infiltration, educated patient on plan of care and call light system, she verbalized understanding, bed in lowest position, two side rails up, call light within reach, fall, aspiration and isolation precautions in place.
[2020-11-18 08:13] LABS: BASOPHILS # (AUTO) 0.1 K/uL (0.0-0.2); BASOPHILS % (AUTO) 1.2 % (0.0-2.0); EOSINOPHILS % (AUTO) 0.1 % (0.0-4.0); HEMATOCRIT 37.2 % (36-48); HEMOGLOBIN 12.7 g/dL (12.0-16.0); LYMPHOCYTES # (AUTO) 2.1 K/uL (1.0-5.5); MEAN CORPUSCULAR HEMOGLOBIN 30 pg (27-31); MEAN CORPUSCULAR HGB CONC 34 % (32-36); MEAN CORPUSCULAR VOLUME 87 fL (79.0-98.0); MONOCYTES # (AUTO) 0.8 K/uL (0.0-1.0); MONOCYTES % (AUTO) 10.8 % (1.7-9.3); NEUTROPHILS # (AUTO) 4.7 K/uL (1.8-7.7); NEUTROPHILS % (AUTO) 60.9 % (40.0-70.0); PLATELET COUNT (AUTO) 721 K/uL (130-430); RED BLOOD CELL COUNT(AUTO) 4.29 MIL/uL (4.2-6.2); RED CELL DISTRIBUTION WIDTH 14.5 % (9.0-15.0); WHITE BLOOD COUNT (AUTO) 7.6 K/uL (4.8-10.8)
[2020-11-18 09:26] LABS: ALBUMIN 2.8 g/dL (3.4-4.8); CALCIUM 9.1 mg/dL (8.4-11.0); CREATININE 0.55 mg/dL (0.55-1.30); POTASSIUM 4.3 mmol/L (3.5-5.1); TOTAL BILIRUBIN 0.6 mg/dL (0.0-1.0)
[2020-11-18 09:32] LABS: ERYTHROCYTE SEDIMENTATION RATE 34 MM/HR (0-20)
--- NOTE | 2020-11-18 10:21 | NUR ---
Discharge Planning: DCP faxed [facility] (f [phone] p [phone]) DCP follow up. Addendum: 11/18/20 at 1633 by Aimee Nugent DP DCP followed up with [facility] (f [phone] p [phone]) declined they are not taking Covid19 Positive patients Addendum: 11/18/20 at 1635 by Aimee Nugent DP DCP faxed pt referral to [facility] (f [phone] p [phone]) DCP to follow up
[2020-11-18 10:48] LABS: C-REACTIVE PROTEIN QUANT 2.3 mg/dL (0-0.5)
[2020-11-18 11:53] VITALS: BP_SYST 116
[2020-11-18] MEDS: DEXAMETHASONE SOD PHOSPHATE 10 MG/ML VIAL IVP SCH (13:25)
[2020-11-18 16:35] VITALS: BP_SYST 116
--- NOTE | 2020-11-18 18:30 | NUR ---
Closing note patient resting in bed, a/ox4, denies pain, patient is on 8L via Oxymizer at this time, tolerating well thus far, patient denies shortness of breath, IV line is patent - no s/s of infiltration, all needs met, will endorse report to NOC shift nurse, bed in lowest position, two side rails up, call light within reach, fall, aspiration and isolation precautions in place.
--- NOTE | 2020-11-18 19:30 | NUR ---
OPENING NOTES PT RESTING IN BED, ALERT & ORIENTED X4. BREATHING EVEN AND UNLABORED TO OXYMIZER AT 8L. O2 SAT 94%. NO S/S OF ACUTE DISTRESS NOTED. PT FAN ANY PAIN AT THIS TIME. IV ON LEFT HAND 24G INTACT SL, NO SIGNS OF INFILTRATION NOTED. CALL LIGHT WITHIN REACH. SIDE RAILS UP X3. SAFETY AND ISOLATION PRECAUTIONS MAINTAINED. WILL CONTINUE TO MONITOR.
[2020-11-18 20:00] VITALS: BP_SYST 120
[2020-11-18] MEDS: cefTRIAXone 1 GM IVPB PREMIX 50 ML IV SCH (23:30)
[2020-11-19 01:33] VITALS: BP_SYST 122
[2020-11-19] MEDS: ALBUTEROL MDI INHALATION 8 GM INH INH SCH ×5 (03:33→23:57)
--- NOTE | 2020-11-19 03:56 | NUR ---
OPENING NOTES PT RESTING IN BED, ALERT & ORIENTED X4. BREATHING EVEN AND UNLABORED TO OXYMIZER AT 8L. O2 SAT 94%. NO S/S OF ACUTE DISTRESS NOTED. PT FAN ANY PAIN AT THIS TIME. IV ON LEFT HAND 24G INTACT SL, NO SIGNS OF INFILTRATION NOTED. CALL LIGHT WITHIN REACH. SIDE RAILS UP X3. SAFETY AND ISOLATION PRECAUTIONS MAINTAINED. WILL CONTINUE TO MONITOR. Addendum: 11/19/20 at 0358 by Aye Willis RN DISCARD. WRONG TIME
[2020-11-19] MEDS: NORMAL SALINE 5 ML DISP.SYRIN IVF SCH ×3 (05:20→22:00)
[2020-11-19 07:40] LABS: BASOPHILS # (AUTO) 0.1 K/uL (0.0-0.2); BASOPHILS % (AUTO) 1.3 % (0.0-2.0); EOSINOPHILS % (AUTO) 0.3 % (0.0-4.0); HEMATOCRIT 39.4 % (36-48); HEMOGLOBIN 13.2 g/dL (12.0-16.0); LYMPHOCYTES # (AUTO) 1.8 K/uL (1.0-5.5); LYMPHOCYTES % (AUTO) 20.6 % (20.5-51.5); MEAN CORPUSCULAR HEMOGLOBIN 29 pg (27-31); MEAN CORPUSCULAR HGB CONC 34 % (32-36); MEAN CORPUSCULAR VOLUME 87 fL (79.0-98.0); MONOCYTES # (AUTO) 0.8 K/uL (0.0-1.0); MONOCYTES % (AUTO) 9.5 % (1.7-9.3); NEUTROPHILS # (AUTO) 5.9 K/uL (1.8-7.7); NEUTROPHILS % (AUTO) 68.3 % (40.0-70.0); PLATELET COUNT (AUTO) 627 K/uL (130-430); RED BLOOD CELL COUNT(AUTO) 4.53 MIL/uL (4.2-6.2); WHITE BLOOD COUNT (AUTO) 8.6 K/uL (4.8-10.8)
[2020-11-19 08:28] LABS: CALCIUM 9.7 mg/dL (8.4-11.0); CREATININE 0.61 mg/dL (0.55-1.30); POTASSIUM 4.6 mmol/L (3.5-5.1)
[2020-11-19 08:54] LABS: C-REACTIVE PROTEIN QUANT 1.2 mg/dL (0-0.5)
[2020-11-19 12:25] LABS: ERYTHROCYTE SEDIMENTATION RATE 34 MM/HR (0-20)
[2020-11-19 13:02] VITALS: BP_SYST 109
--- NOTE | 2020-11-19 15:33 | NUR ---
CONSULTATION CALLED REASON FOR CONSULTATION:transaminitis WAS CONSULT CALLED?Y PERSON WHO WAS NOTIFIED:KIRSTEN CONSULTING PHYSICIAN:JAYLYN EPSTEIN (JACEIL SEGURA ACCOUNT REPRESENTATIVE) [employer] SPECIALTY:GI [employer] PHONE NUMBER:[phone] REQUESTING PHYSICIAN:FADI ASHTON
[2020-11-19] MEDS: ENOXAPARIN SODIUM 60 MG/0.6 ML SYRINGE SUBCUT SCH ×2 (16:00→21:00)
[2020-11-19] MEDS: DEXAMETHASONE SOD PHOSPHATE 10 MG/ML VIAL IVP SCH (16:00)
[2020-11-19 17:18] VITALS: BP_SYST 121
--- NOTE | 2020-11-19 19:15 | NUR ---
OPENING NOTE LATE ENTRY DUE TO PATIENT CARE AND HAVING 5 COVID PATIENTS. REPORT RECEIVED FROM DAYSHIFT NURSE. PATIENT RECEIVED LYING IN BED, AWAKE, AOX4, NO S/S OF ACUTE DISTRESS NOTED, PATIENT DENIES PAIN. BREATHING EVEN AND UNLABORED, HOB RAISED, ON OXYMIZER, 8L OF OXYGEN. IV SITE IS PATENT, NO SIGNS OF INFILTRATION OR INFECTION NOTED. CALL LIGHT WITH PATIENT. BED IS LOCKED AND AT LOWEST POSITION. WILL CONTINUE TO MONITOR.
[2020-11-19 20:00] VITALS: BP_SYST 122
[2020-11-19] MEDS: cefTRIAXone 1 GM IVPB PREMIX 50 ML IV SCH (23:30)
[2020-11-20] VITALS: BP_SYST 120
[2020-11-20] MEDS: ALBUTEROL MDI INHALATION 8 GM INH INH SCH ×2 (02:45→08:00)
[2020-11-20] MEDS: NORMAL SALINE 5 ML DISP.SYRIN IVF SCH ×3 (06:00→21:06)
--- NOTE | 2020-11-20 07:40 | NUR ---
CLOSING NOTE PATIENT IN BED, AWAKE, AOX4, NO S/S OF ACUTE DISTRESS NOTED. BREATHING EVEN AND UNLABORED. HOB RAISED, OXYMIZER ATTACHED PROPERLY ON 8L OF OXYGEN, SPO2 AT 94. PATIENT DENIES PAIN OR SOB. IV SITE IS PATENT, NO SIGNS OF INFILTRATION OR INFECTION NOTED. ALL NEEDS MET THROUGHOUT SHIFT. FALL, SAFETY, AND ISOLATION PRECAUTIONS MAINTAINED THROUGHOUT SHIFT. WILL CONTINUE TO MONITOR UNTIL PATIENT CARE IS ENDORSED TO ONCOMING DAYSHIFT NURSE.
--- NOTE | 2020-11-20 08:10 | NUR ---
AM ROUNDS: PATIENT ON THE BED.ON OXYMIZER @ 6L/MIN. WITH GOOD SATURATION. NO SOB. CALL LIGHT WITH IN REACH. BED LOCKED AT LOWEST POSITION. CONTINUE TO MONITOR.
[2020-11-20] MEDS: ENOXAPARIN SODIUM 60 MG/0.6 ML SYRINGE SUBCUT SCH ×2 (09:10→21:00)
[2020-11-20 09:41] LABS: BASOPHILS # (AUTO) 0.1 K/uL (0.0-0.2); BASOPHILS % (AUTO) 0.8 % (0.0-2.0); HEMATOCRIT 42.6 % (36-48); HEMOGLOBIN 14.3 g/dL (12.0-16.0); LYMPHOCYTES # (AUTO) 1.6 K/uL (1.0-5.5); LYMPHOCYTES % (AUTO) 16.9 % (20.5-51.5); MEAN CORPUSCULAR HEMOGLOBIN 29 pg (27-31); MEAN CORPUSCULAR HGB CONC 34 % (32-36); MEAN CORPUSCULAR VOLUME 87 fL (79.0-98.0); MONOCYTES # (AUTO) 0.2 K/uL (0.0-1.0); NEUTROPHILS # (AUTO) 7.6 K/uL (1.8-7.7); NEUTROPHILS % (AUTO) 80.3 % (40.0-70.0); PLATELET COUNT (AUTO) 648 K/uL (130-430); RED CELL DISTRIBUTION WIDTH 14.6 % (9.0-15.0); WHITE BLOOD COUNT (AUTO) 9.5 K/uL (4.8-10.8)
[2020-11-20 09:42] VITALS: BP_SYST 111
[2020-11-20 09:49] LABS: ALBUMIN 3.3 g/dL (3.4-4.8); CALCIUM 9.4 mg/dL (8.4-11.0); CREATININE 0.56 mg/dL (0.55-1.30); POTASSIUM 4.2 mmol/L (3.5-5.1); TOTAL BILIRUBIN 0.7 mg/dL (0.0-1.0)
[2020-11-20 10:08] LABS: C-REACTIVE PROTEIN QUANT 0.9 mg/dL (0-0.5)
[2020-11-20 12:33] LABS: ERYTHROCYTE SEDIMENTATION RATE 31 MM/HR (0-20)
[2020-11-20] MEDS: DEXAMETHASONE SOD PHOSPHATE 10 MG/ML VIAL IVP SCH (13:04)
[2020-11-20 13:22] VITALS: BP_SYST 126
[2020-11-20 16:05] VITALS: BP_SYST 121
--- NOTE | 2020-11-20 18:21 | NUR ---
CLOSING NOTES: PATIENT DINNER DURING ROUNDS. MAINTAINED OXYMIZER @ 6L/MIN,WITH O2 SATURATION=95%. NO ACUTE DISTRESS.
--- NOTE | 2020-11-20 19:15 | NUR ---
OPENING NOTE REPORT RECEIVED FROM DAYSHIFT NURSE. PATIENT RECEIVED LYING IN BED, AWAKE, WATCHING TV, NO S/S OF ACUTE DISTRESS NOTED. BREATHING EVEN AND UNLABORED. OXYMIZER ATTACHED PROPERLY. PATIENT DENIES PAIN OR SOB. IV SITE IS PATENT, NO SIGNS OF INFILTRATION OR INFECTION NOTED. CALL LIGHT WITH PATIENT. BED IS LOCKED AND AT LOWEST POSITION. WILL CONTINUE TO MONITOR.
[2020-11-20 20:00] VITALS: BP_SYST 118
[2020-11-20] MEDS: cefTRIAXone 1 GM IVPB PREMIX 50 ML IV SCH (22:22)
[2020-11-21] VITALS: BP_SYST 122
[2020-11-21] MEDS: ALBUTEROL MDI INHALATION 8 GM INH INH SCH ×7 (00:41→16:03)
[2020-11-21] MEDS: NORMAL SALINE 5 ML DISP.SYRIN IVF SCH ×3 (05:34→21:33)
[2020-11-21 06:19] LABS: BASOPHILS # (AUTO) 0.1 K/uL (0.0-0.2); BASOPHILS % (AUTO) 0.6 % (0.0-2.0); EOSINOPHILS % (AUTO) 0.2 % (0.0-4.0); HEMATOCRIT 39.1 % (36-48); HEMOGLOBIN 13.5 g/dL (12.0-16.0); LYMPHOCYTES # (AUTO) 1.9 K/uL (1.0-5.5); LYMPHOCYTES % (AUTO) 20.4 % (20.5-51.5); MEAN CORPUSCULAR HEMOGLOBIN 30 pg (27-31); MEAN CORPUSCULAR HGB CONC 34 % (32-36); MEAN CORPUSCULAR VOLUME 87 fL (79.0-98.0); MONOCYTES # (AUTO) 0.7 K/uL (0.0-1.0); NEUTROPHILS # (AUTO) 6.6 K/uL (1.8-7.7); NEUTROPHILS % (AUTO) 70.8 % (40.0-70.0); PLATELET COUNT (AUTO) 543 K/uL (130-430); RED CELL DISTRIBUTION WIDTH 14.5 % (9.0-15.0); WHITE BLOOD COUNT (AUTO) 9.3 K/uL (4.8-10.8)
[2020-11-21 06:28] LABS: CALCIUM 9.2 mg/dL (8.4-11.0); CREATININE 0.75 mg/dL (0.55-1.30); POTASSIUM 4.3 mmol/L (3.5-5.1); PROTHROMBIN TIME 10.4 SECS (9.5-12.5); TOTAL BILIRUBIN 0.6 mg/dL (0.0-1.0)
--- NOTE | 2020-11-21 06:36 | NUR ---
CLOSING NOTE PATIENT IN BED, SLEEPING, NO S/S OF ACUTE DISTRESS NOTED. BREATHING EVEN AND UNLABORED. OXYMIZER ATTACHED PROPERLY, ON 6L OF OXYGEN. IV SITE PATENT, NO SIGNS OF INFILTRATION OR INFECTION NOTED. ALL NEEDS MET THROUGHOUT SHIFT. FALL, SAFETY, AND ISOLATION PRECAUTIONS MAINTAINED THROUGHOUT SHIFT. WILL CONTINUE TO MONITOR UNTIL PATIENT CARE IS ENDORSED TO ONCOMING DAYSHIFT NURSE.
[2020-11-21 07:58] VITALS: BP_SYST 107
[2020-11-21 07:58] LABS: TOTAL IRON BIND. CAPACITY 320 ug/dL (250-450)
[2020-11-21] MEDS: ENOXAPARIN SODIUM 60 MG/0.6 ML SYRINGE SUBCUT SCH ×2 (08:06→21:00)
[2020-11-21 10:15] LABS: ERYTHROCYTE SEDIMENTATION RATE 26 MM/HR (0-20)
[2020-11-21 10:57] LABS: C-REACTIVE PROTEIN QUANT 0.9 mg/dL (0-0.5)
[2020-11-21 11:18] VITALS: BP_SYST 107
[2020-11-21 12:10] VITALS: BP_SYST 108
[2020-11-21] MEDS: DEXAMETHASONE SOD PHOSPHATE 10 MG/ML VIAL IVP SCH (13:00)
[2020-11-21 16:00] VITALS: BP_SYST 107
--- NOTE | 2020-11-21 19:27 | NUR ---
OPENING NOTE REPORT RECEIVED FROM DAYSHIFT NURSE. PATIENT IN BED, AWAKE, WATCHING TV, NO S/S OF ACUTE DISTRESS, AOX4, HOB RAISED, BREATHING EVEN AND UNLABORED. OXYMIZER ATTACHED PROPERLY, ON 5L OF OXYGEN. IV SITE PATENT, NO SIGNS OF INFILTRATION OR INFECTION NOTED. CALL LIGHT WITH PATIENT. BED IS LOCKED AND AT LOWEST POSITION. WILL CONTINUE TO MONITOR .
[2020-11-21 21:48] VITALS: BP_SYST 115
[2020-11-21] MEDS: cefTRIAXone 1 GM IVPB PREMIX 50 ML IV SCH (23:59)
[2020-11-22] VITALS: BP_SYST 108
[2020-11-22] MEDS: ALBUTEROL MDI INHALATION 8 GM INH INH SCH ×5 (04:21→16:08)
[2020-11-22] MEDS: NORMAL SALINE 5 ML DISP.SYRIN IVF SCH ×3 (06:25→22:00)
--- NOTE | 2020-11-22 06:25 | NUR ---
CLOSING NOTE PATIENT IN BED, SLEEPING COMFORTABLY, ON PRONE POSITION. NO S/S OF ACUTE DISTRESS NOTED. BREATHING EVEN AND UNLABORED. IV SITE PATENT, NO SIGNS OF INFILTRATION OR INFECTION NOTED. ALL NEEDS MET. FALL, SAFETY, AND ISOLATION PRECAUTIONS MAINTAINED THROUGHOUT SHIFT. WILL CONTINUE TO MONITOR UNTIL PATIENT CARE IS ENDORSED TO ONCOMING DAYSHIFT NURSE.
[2020-11-22] MEDS: ENOXAPARIN SODIUM 60 MG/0.6 ML SYRINGE SUBCUT SCH ×2 (08:08→21:00)
[2020-11-22 08:09] VITALS: BP_SYST 105
--- NOTE | 2020-11-22 08:20 | NUR ---
INITIAL NOTE: PATIENT IS ALERT, ORIENTED X4, DENIES ANY PAIN OR DISCOMFORT, ON OXYGEN 4 L/M VIA NC, NO SIGN OF SOB. WILL MONITOR OXYGENATION AND TRY TO TITRATE DOWN.
[2020-11-22 08:41] LABS: BASOPHILS # (AUTO) 0.1 K/uL (0.0-0.2); BASOPHILS % (AUTO) 0.9 % (0.0-2.0); EOSINOPHILS % (AUTO) 0.1 % (0.0-4.0); HEMATOCRIT 39.1 % (36-48); HEMOGLOBIN 12.9 g/dL (12.0-16.0); LYMPHOCYTES # (AUTO) 1.9 K/uL (1.0-5.5); MEAN CORPUSCULAR HEMOGLOBIN 29 pg (27-31); MEAN CORPUSCULAR HGB CONC 33 % (32-36); MEAN CORPUSCULAR VOLUME 87 fL (79.0-98.0); MONOCYTES # (AUTO) 0.6 K/uL (0.0-1.0); MONOCYTES % (AUTO) 7.1 % (1.7-9.3); NEUTROPHILS # (AUTO) 6.4 K/uL (1.8-7.7); NEUTROPHILS % (AUTO) 70.9 % (40.0-70.0); PLATELET COUNT (AUTO) 476 K/uL (130-430); RED BLOOD CELL COUNT(AUTO) 4.47 MIL/uL (4.2-6.2); RED CELL DISTRIBUTION WIDTH 14.5 % (9.0-15.0)
[2020-11-22 09:05] LABS: CALCIUM 9.4 mg/dL (8.4-11.0); CREATININE 0.6 mg/dL (0.55-1.30); POTASSIUM 4.3 mmol/L (3.5-5.1)
[2020-11-22 11:18] VITALS: BP_SYST 113
[2020-11-22 12:10] LABS: C-REACTIVE PROTEIN QUANT 0.8 mg/dL (0-0.5)
[2020-11-22] MEDS: DEXAMETHASONE SOD PHOSPHATE 10 MG/ML VIAL IVP SCH (13:35)
[2020-11-22 15:30] VITALS: BP_SYST 123
--- NOTE | 2020-11-22 19:01 | NUR ---
CLOSING NOTE: PATIENT IS STABLE WITH OXYGEN 4 L/M VIA NC NO SIGN OF DISTRESS. TOLERATES DIET WELL WITH BMx2.
--- NOTE | 2020-11-22 19:15 | NUR ---
OPENING NOTE REPORT RECEIVED FROM DAYSHIFT NURSE. PATIENT RECEIVED LYING IN BED, AOX4, NO S/S OF ACUTE DISTRESS NOTED. BREATHING EVEN AND UNLABORED. NASAL CANULA ATTACHED PROPERLY, ON 4L OF OXYGEN. CALL LIGHT WITH PATIENT. BED IS LOCKED AND AT LOWEST POSITION. WILL CONTINUE TO MONITOR.
[2020-11-22 19:19] LABS: ERYTHROCYTE SEDIMENTATION RATE 16 MM/HR (0-20)
[2020-11-22 20:00] VITALS: BP_SYST 120
[2020-11-22] MEDS: cefTRIAXone 1 GM IVPB PREMIX 50 ML IV SCH (23:30)
[2020-11-23] VITALS: BP_SYST 112
[2020-11-23] MEDS: NORMAL SALINE 5 ML DISP.SYRIN IVF SCH ×3 (06:00→21:59)
--- NOTE | 2020-11-23 07:30 | NUR ---
CLOSING NOTE PATIENT CARE ENDORSED TO ONCOMING DAYSHIFT NURSE. PATIENT IN BED, AWAKE, NO S/S OF ACUTE DISTRESS NOTED. BREATHING IS EVEN AND UNLABORED. IV SITE PATENT, NO SIGNS OF INFILTRATION OR INFECTION NOTED. ALL NEEDS MET.
--- NOTE | 2020-11-23 07:30 | NUR ---
OPENING NOTES: RECEIVED PATIENT FROM SHIRT PRESSER NURSE. PATIENT IS AWAKE AND ALERT x4 LAYING DOWN IN BED. PATIENT IS TOLERATING OXYGEN ON 4 L NASAL CANNULA WITH NO SIGNS OF DISTRESS OR SHORTNESS OF BREATH NOTED. IV SITE IS PATENT WITH NO SIGNS OF INFILTRATION NOTED. PATIENT DENIES ANY PAIN AT THE MOMENT. PATIENT IN STABLE CONDITION. SAFETY, FALL, ASPIRATION, CONTACT AND DROPLET PRECAUTIONS ARE IN PLACE. BED LOCKED IN LOWEST POSITION WITH CALL LIGHT IN REACH. WILL CONTINUE TO MONITOR PATIENT FOR ANY CHANGES.
[2020-11-23 08:00] VITALS: BP_SYST 123
[2020-11-23 08:25] LABS: BASOPHILS # (AUTO) 0.1 K/uL (0.0-0.2); BASOPHILS % (AUTO) 0.8 % (0.0-2.0); EOSINOPHILS % (AUTO) 0.2 % (0.0-4.0); HEMOGLOBIN 13.1 g/dL (12.0-16.0); LYMPHOCYTES # (AUTO) 2.7 K/uL (1.0-5.5); LYMPHOCYTES % (AUTO) 24.6 % (20.5-51.5); MEAN CORPUSCULAR HEMOGLOBIN 29 pg (27-31); MEAN CORPUSCULAR HGB CONC 34 % (32-36); MEAN CORPUSCULAR VOLUME 87 fL (79.0-98.0); MONOCYTES # (AUTO) 0.8 K/uL (0.0-1.0); MONOCYTES % (AUTO) 7.4 % (1.7-9.3); NEUTROPHILS # (AUTO) 7.2 K/uL (1.8-7.7); PLATELET COUNT (AUTO) 430 K/uL (130-430); RED CELL DISTRIBUTION WIDTH 14.4 % (9.0-15.0); WHITE BLOOD COUNT (AUTO) 10.8 K/uL (4.8-10.8)
[2020-11-23 08:36] LABS: ALBUMIN 3.1 g/dL (3.4-4.8); BILIRUBIN,DIRECT 0.1 mg/dL (0.0-0.3); CALCIUM 9.4 mg/dL (8.4-11.0); CREATININE 0.61 mg/dL (0.55-1.30); POTASSIUM 4.4 mmol/L (3.5-5.1); TOTAL BILIRUBIN 0.6 mg/dL (0.0-1.0)
[2020-11-23] MEDS: ENOXAPARIN SODIUM 60 MG/0.6 ML SYRINGE SUBCUT SCH ×2 (08:40→21:00)
[2020-11-23] MEDS: ALBUTEROL MDI INHALATION 8 GM INH INH SCH ×4 (10:18→23:40)
[2020-11-23] MEDS: DEXAMETHASONE SOD PHOSPHATE 10 MG/ML VIAL IVP SCH (12:15)
[2020-11-23 12:21] LABS: C-REACTIVE PROTEIN QUANT 0.7 mg/dL (0-0.5)
[2020-11-23 12:34] VITALS: BP_SYST 113
[2020-11-23 16:50] VITALS: BP_SYST 121
--- NOTE | 2020-11-23 18:42 | NUR ---
CLOSING NOTES: PATIENT IS AWAKE AND ALERT x4 LAYING DOWN IN BED. PATIENT IS TOLERATING OXYGEN ON 4 L NASAL CANNULA WITH NO SIGNS OF DISTRESS OR SHORTNESS OF BREATH NOTED. IV SITE IS PATENT WITH NO SIGNS OF INFILTRATION NOTED. PATIENT DENIES ANY PAIN AT THE MOMENT. PATIENT IN STABLE CONDITION. SAFETY, FALL, ASPIRATION, CONTACT AND DROPLET PRECAUTIONS REMAINED IN PLACE THROUGHOUT THE SHIFT. BED LOCKED IN LOWEST POSITION WITH CALL LIGHT IN REACH. WILL ENDORSE PATIENT CARE TO ONCOMING INSTRUMENT MAKER AND REPAIRER NURSE.
--- NOTE | 2020-11-23 19:15 | NUR ---
OPENING NOTE PATIENT IN BED, AWAKE, WATCHING TV, NO S/S OF ACUTE DISTRESS NOTED. BREATHING EVEN AND UNLABORED, ON 4L OF OXYGEN. NO COMPLAINTS OF PAIN OR SOB. CALL LIGHT WITH PATIENT. WILL CONTINUE TO MONITOR.
[2020-11-23 20:00] VITALS: BP_SYST 122
[2020-11-23] MEDS: cefTRIAXone 1 GM IVPB PREMIX 50 ML IV SCH (23:10)
[2020-11-24] VITALS: BP_SYST 119
[2020-11-24 00:11] LABS: ERYTHROCYTE SEDIMENTATION RATE > 150 MM/HR (0-20)
[2020-11-24] MEDS: ALBUTEROL MDI INHALATION 8 GM INH INH SCH ×5 (03:09→20:12)
[2020-11-24] MEDS: NORMAL SALINE 5 ML DISP.SYRIN IVF SCH ×2 (07:05→13:47)
--- NOTE | 2020-11-24 07:51 | NUR ---
CLOSING NOTE PATIENT IN BED, NO S/S OF ACUTE DISTRESS NOTED. BREATHING EVEN AND UNLABORED, 4L NASAL CANULA ATTACHED PROPERLY, TOLERATING WELL, NO COMPLAINTS OF PAIN OR SOB. ALL NEEDS MET THROUGHOUT SHIFT. FALL, SAFETY, AND ISOLATION PRECAUTIONS MAINTAINED THROUGHOUT SHIFT. ENDORSED PATIENT CARE TO DAYSHIFT NURSE.
[2020-11-24 08:00] VITALS: BP_SYST 129
[2020-11-24 08:45] LABS: BASOPHILS # (AUTO) 0.1 K/uL (0.0-0.2); EOSINOPHILS % (AUTO) 0.3 % (0.0-4.0); HEMATOCRIT 38.7 % (36-48); HEMOGLOBIN 12.9 g/dL (12.0-16.0); LYMPHOCYTES # (AUTO) 3.1 K/uL (1.0-5.5); LYMPHOCYTES % (AUTO) 24.8 % (20.5-51.5); MEAN CORPUSCULAR HEMOGLOBIN 29 pg (27-31); MEAN CORPUSCULAR HGB CONC 33 % (32-36); MEAN CORPUSCULAR VOLUME 87 fL (79.0-98.0); MONOCYTES # (AUTO) 0.7 K/uL (0.0-1.0); MONOCYTES % (AUTO) 5.9 % (1.7-9.3); NEUTROPHILS # (AUTO) 8.4 K/uL (1.8-7.7); PLATELET COUNT (AUTO) 398 K/uL (130-430); RED BLOOD CELL COUNT(AUTO) 4.44 MIL/uL (4.2-6.2); RED CELL DISTRIBUTION WIDTH 14.9 % (9.0-15.0); WHITE BLOOD COUNT (AUTO) 12.3 K/uL (4.8-10.8)
[2020-11-24] MEDS: ENOXAPARIN SODIUM 60 MG/0.6 ML SYRINGE SUBCUT SCH (09:00)
[2020-11-24 09:08] LABS: ALBUMIN 3.1 g/dL (3.4-4.8); BILIRUBIN,DIRECT 0.2 mg/dL (0.0-0.3); CALCIUM 9.2 mg/dL (8.4-11.0); CREATININE 0.5 mg/dL (0.55-1.30); POTASSIUM 4.5 mmol/L (3.5-5.1); TOTAL BILIRUBIN 0.6 mg/dL (0.0-1.0)
[2020-11-24 09:14] LABS: PROTHROMBIN TIME 10.5 SECS (9.5-12.5)
[2020-11-24 09:39] LABS: C-REACTIVE PROTEIN QUANT 0.4 mg/dL (0-0.5)
[2020-11-24 12:10] VITALS: BP_SYST 116
[2020-11-24 13:26] LABS: ERYTHROCYTE SEDIMENTATION RATE 17 MM/HR (0-20)
[2020-11-24] MEDS: DEXAMETHASONE SOD PHOSPHATE 10 MG/ML VIAL IVP SCH (13:46)
--- NOTE | 2020-11-24 14:08 | NUR ---
Discharge Planning: DCP followed up with [facility] (f [phone] p [phone]) a RX order is needed with liter flow and auth from insurance. Addendum: 11/24/20 at 1415 by Aimee Nugent DP DCP made CM aware a dc order is needed with oxygen liters and if continuos or as needed. DCP lm for pt nurse.
--- NOTE | 2020-11-24 14:19 | NUR ---
Nutrition F/U RD reviewed pt's current EMR record including diet hx, MD notes, RN notes, pertinent labs/meds/procedures, care trends, and care activity Admitting Diagnosis COVID Positive, Pneumonia Reviewed Pertinent Medical/Surgical Hx Medical Record Medical History Comment: PMH: Asthma Pt also found w/ acute respiratory failure, thrombocytosis and had reaction w/ convalescent plasma 11/13 per MD note. SARS-CoV-2 Ag Rapid Negative 11/10 SARS-CoV-2 PCR Positive 11/10 Subjective Information Pt admitted w/ COVID PNA and RD visit remains deferred at this time d/t isolation precautions. Has good PO intake of 75-100% for most of meals since previous RD assessment. Will d/c oral nutritional supplement and recommend continue Regular Diet. Current Diet Order/Nutrition Support Regular Diet x 13 days Patient Weight 56.245 kg Skin Integrity Comment: Kannan scale 20. No skin issues noted. Current % PO Good (75-100%) Estimated Energy Expenditure (kcals/day) 3581-9344 kcal/day (25-30 kcal/kg CBW for maintenance) Estimated Protein Required (g/day) 67-84 g pro/day (1.2-1.5 g pro/kg CBW for COVID needs) Estimated Fluid Required (l/day) 4206-4391 ml/day (1ml/kcal/day for maintenance) Problem/Etiology/Signs/Symptoms Increased protein needs r/t increased nutritional demands AEB COVID-19 PNA *improved Expected Outcomes/Goals -Will monitor diet tolerance and PO intake w/ goal of pt meeting at least 75% of estimated nutritional needs, labs trending WNL, normal GI function, skin integrity, and weight maintenance. Dietitian Recommendations *Recommend continue Regular Diet Follow Up Low Risk: F/U in 7 days
--- NOTE | 2020-11-24 14:28 | NUR ---
Dietitian Recommendations *Recommend continue Regular Diet Please see Nutrition F/U for details. EP,RD
[2020-11-24 16:03] LABS: FERRITIN 486 ng/mL (15-150)
[2020-11-24 16:14] VITALS: BP_SYST 104
--- NOTE | 2020-11-24 18:16 | NUR ---
INFORMED DR Sherly SALAS THAT PT NEEDS HOME O2 ORDER SO DCP CAN WORK ON IT.
[2020-11-24] MEDS ORDERED: DEC4 PO (18:43)
[2020-11-24] MEDS ORDERED: APIX2.5T PO (18:43)
[2020-11-24] MEDS ORDERED: DOXY100C PO (18:43)
[2020-11-24] MEDS ORDERED: ALBMDI INH (18:44)
[2020-11-24] MEDS ORDERED: oxygen (18:49)
--- NOTE | 2020-11-24 19:50 | NUR ---
opening note Patient is awake, AOx4, resting in bed in comfortable position, no distress. Oxygen support is NC at 4L, IV is SL. Side rails up 2x and call light w/in reach. She has bedside commode available at bedside. VSS and oxygen saturation is 93% on 4L NC.
[2020-11-24 20:00] VITALS: BP_SYST 121
[2020-11-25] MEDS: ALBUTEROL MDI INHALATION 8 GM INH INH SCH ×6 (01:13→23:00)
[2020-11-25] MEDS: NORMAL SALINE 5 ML DISP.SYRIN IVF SCH ×4 (01:54→22:30)
[2020-11-25] MEDS: cefTRIAXone 1 GM IVPB PREMIX 50 ML IV SCH ×2 (01:55→22:30)
--- NOTE | 2020-11-25 06:30 | NUR ---
closing note Patient is resting in bed in comfortable position, no distress. Oxygen support is NC at 4L, IV is SL. Side rails up 2x and call light w/in reach. Bedside commode is within reach and has been emptied. Needs met throughout shift, will endorse to incoming nurse.
--- NOTE | 2020-11-25 08:00 | NUR ---
AM ROUNDS: PATIENT RESTING ON THE BED. O2 4L/NC,GOOD SATURATION. IV SALINE AT LEFT FOREARM INTACT. NOT IN ANY DISTRESS. CONTINUE TO MONITOR.
[2020-11-25] MEDS: ENOXAPARIN SODIUM 60 MG/0.6 ML SYRINGE SUBCUT SCH (08:34)
[2020-11-25 08:45] VITALS: BP_SYST 121
[2020-11-25 09:16] LABS: CALCIUM 9.9 mg/dL (8.4-11.0); CREATININE 0.54 mg/dL (0.55-1.30); POTASSIUM 3.9 mmol/L (3.5-5.1)
[2020-11-25 09:19] LABS: BASOPHILS # (AUTO) 0.2 K/uL (0.0-0.2); BASOPHILS % (AUTO) 1.2 % (0.0-2.0); EOSINOPHILS # (AUTO) 0.1 K/uL (0.0-0.4); EOSINOPHILS % (AUTO) 0.8 % (0.0-4.0); HEMATOCRIT 40.5 % (36-48); HEMOGLOBIN 13.4 g/dL (12.0-16.0); LYMPHOCYTES # (AUTO) 3.3 K/uL (1.0-5.5); LYMPHOCYTES % (AUTO) 25.5 % (20.5-51.5); MEAN CORPUSCULAR HEMOGLOBIN 29 pg (27-31); MEAN CORPUSCULAR HGB CONC 33 % (32-36); MEAN CORPUSCULAR VOLUME 88 fL (79.0-98.0); MONOCYTES # (AUTO) 0.7 K/uL (0.0-1.0); MONOCYTES % (AUTO) 5.3 % (1.7-9.3); NEUTROPHILS # (AUTO) 8.6 K/uL (1.8-7.7); NEUTROPHILS % (AUTO) 67.2 % (40.0-70.0); PLATELET COUNT (AUTO) 390 K/uL (130-430); RED BLOOD CELL COUNT(AUTO) 4.62 MIL/uL (4.2-6.2); RED CELL DISTRIBUTION WIDTH 14.9 % (9.0-15.0); WHITE BLOOD COUNT (AUTO) 12.8 K/uL (4.8-10.8)
[2020-11-25 10:06] LABS: HEPATITIS A AB, IgM Negative (Negative); HEPATITIS B CORE AB, IgM Negative (Negative); HEPATITIS B SURFACE AG Negative (Negative)
[2020-11-25 10:47] LABS: ERYTHROCYTE SEDIMENTATION RATE 22 MM/HR (0-20)
[2020-11-25 11:50] LABS: C-REACTIVE PROTEIN QUANT 0.7 mg/dL (0-0.5)
--- NOTE | 2020-11-25 12:19 | NUR ---
Discharge Planning: DCP followed up with [facility] (f [phone] p [phone]) DCP faxed over RX for oxygen. DCP spoke Alondra at [facility] ([phone]) stated she will send auth to [facility]. DCP to follow.
[2020-11-25] MEDS: DEXAMETHASONE SOD PHOSPHATE 10 MG/ML VIAL IVP SCH (13:09)
[2020-11-25 13:20] VITALS: BP_SYST 110
--- NOTE | 2020-11-25 13:20 | NUR ---
COVID RAPID: SPECIMEN FOR COVID RAPID SEND TO LAB.
--- NOTE | 2020-11-25 14:42 | NUR ---
Case mgt: Per Nan, , she gave message to nurse Stephanie that pt needs Covid rapid test (home health is pending Covid results)-- RN
--- NOTE | 2020-11-25 15:43 | NUR ---
Case mgt: Faxed home health orders to [facility], included negative Covid result from today--ph#[phone], fax#[phone]--BOLIVAR CADET Addendum: 11/25/20 at 1614 by Loly Olivarez RN Ysenia from [facility] called back to say they have no staff available to take pt---Faxing home health orders to [facility] at [phone]--business case analyst is Mo at [phone]--BOLIVAR CADET
--- NOTE | 2020-11-25 16:22 | NUR ---
I left message at [facility] casey saw operator Mo at [phone] regarding need for home health-- RN
[2020-11-25 17:00] VITALS: BP_SYST 116
--- NOTE | 2020-11-25 18:18 | NUR ---
END OF SHIFT: INFORMED DESIRE CASE MGT,PATIENT RAPID COVID NEGATIVE. WAITING FOR FOR APPROVAL OF O2 HOME USE. ON O2 2L/NC,GOOD SATURATION. NO ACUTE DISTRESS.
[2020-11-25 20:00] VITALS: BP_SYST 123
[2020-11-25] MEDS: traZODone HCL 50 MG TABLET (DESYREL) PO PRN (22:30)
[2020-11-26 00:06] VITALS: BP_SYST 101
[2020-11-26] MEDS: ALBUTEROL MDI INHALATION 8 GM INH INH SCH ×5 (03:49→20:00)
[2020-11-26] MEDS: NORMAL SALINE 5 ML DISP.SYRIN IVF SCH ×3 (05:00→22:00)
--- NOTE | 2020-11-26 08:00 | NUR ---
AM ROUNDS: PATIENT RESTING ON THE BED. STILL ON O2 2L/NC,GOOD SATURATION. COVID ISOLATION PRECAUTION RENDERED. WAITING FOR HOME O2 DELIVERY PER DC HYDRAULIC RIVETER ARRANGEMENT. NO ACUTE DISTRESS.
[2020-11-26 08:20] VITALS: BP_SYST 124
[2020-11-26 08:32] LABS: BASOPHILS # (AUTO) 0.1 K/uL (0.0-0.2); EOSINOPHILS % (AUTO) 0.1 % (0.0-4.0); HEMATOCRIT 39.6 % (36-48); HEMOGLOBIN 13.2 g/dL (12.0-16.0); LYMPHOCYTES # (AUTO) 2.6 K/uL (1.0-5.5); LYMPHOCYTES % (AUTO) 20.4 % (20.5-51.5); MEAN CORPUSCULAR HEMOGLOBIN 29 pg (27-31); MEAN CORPUSCULAR HGB CONC 33 % (32-36); MEAN CORPUSCULAR VOLUME 88 fL (79.0-98.0); MONOCYTES # (AUTO) 0.6 K/uL (0.0-1.0); MONOCYTES % (AUTO) 4.8 % (1.7-9.3); NEUTROPHILS # (AUTO) 9.5 K/uL (1.8-7.7); NEUTROPHILS % (AUTO) 73.7 % (40.0-70.0); PLATELET COUNT (AUTO) 377 K/uL (130-430); RED BLOOD CELL COUNT(AUTO) 4.52 MIL/uL (4.2-6.2); WHITE BLOOD COUNT (AUTO) 12.8 K/uL (4.8-10.8)
[2020-11-26 08:44] LABS: ALBUMIN 3.1 g/dL (3.4-4.8); BILIRUBIN,DIRECT 0.1 mg/dL (0.0-0.3); CALCIUM 9.2 mg/dL (8.4-11.0); CREATININE 0.6 mg/dL (0.55-1.30); POTASSIUM 4.5 mmol/L (3.5-5.1); TOTAL BILIRUBIN 0.5 mg/dL (0.0-1.0)
[2020-11-26] MEDS: ENOXAPARIN SODIUM 60 MG/0.6 ML SYRINGE SUBCUT SCH (08:53)
[2020-11-26 09:08] LABS: ANTI NUCLEAR AB WITH REFLEX Negative (Negative)
[2020-11-26 09:18] LABS: ERYTHROCYTE SEDIMENTATION RATE 22 MM/HR (0-20)
[2020-11-26 09:30] LABS: C-REACTIVE PROTEIN QUANT 0.8 mg/dL (0-0.5)
--- NOTE | 2020-11-26 10:23 | NUR ---
Discharge Planning: DCP followed up with [facility] (f [phone] p [phone]) made rep Fabio aware of auth and faxed a copy to [facility] warehouse (f [phone]). DCP faxed [facility] (f [phone] p [phone]), [facility] (f [phone] p [phone]) DCP to follow up
[2020-11-26 12:20] VITALS: BP_SYST 100
[2020-11-26] MEDS: DEXAMETHASONE SOD PHOSPHATE 10 MG/ML VIAL IVP SCH (13:49)
[2020-11-26 16:00] VITALS: BP_SYST 116
--- NOTE | 2020-11-26 19:05 | NUR ---
END OF SHIFT: ENDORSED TO NIGHT NURSE,PATIENT WAITING FOR O2 CYLINDER FOR HOME USE. NO ACUTE DISTRESS.
[2020-11-26 20:45] VITALS: BP_SYST 124
[2020-11-26 21:52] VITALS: BP_SYST 124
--- NOTE | 2020-11-26 22:55 | NUR ---
D/C Patient Patient given medication reconciliation form and D/C instructions. Exit Care provided. Patient AND DAUGHTER URSULA verbalized understanding. MD discussed with patient the results and treatment provided. Ambulatory with steady gait for discharge to home. Patient in stable condition, ID band removed. IV catheter removed, intact and dressing applied, no active bleeding. Rx of given. Patient educated on HOME OXYGEN MANAGEMENT. All belongings sent with patient.
--- NOTE | 2020-11-29 12:39 | NUR ---
notes BUFFER NICKEL called [facility], , but there was no answer. The business hours are M-F 9-5:30. BUFFER NICKEL is unable to confirm their services for discharged patient. BUFFER NICKEL called [facility] , and spoke to Angélica who stated she unable to follow up on this patient and if services are being provided. BUFFER NICKEL was asked to call back on Monday. Lastly, BUFFER NICKEL followed up with Nurse Dim[facility] , an spoke to Tran who put BUFFER NICKEL on hold, never to return to this call. BUFFER NICKEL called back and there was no answer. BUFFER NICKEL called colin Medrano who stated she picked up her moms/former patients medications from [facility] and has oxygen at home. They have not hear from any agencies or [facility]. BUFFER NICKEL will leave a note for follow up on Monday.
[2020-11-30 10:06] LABS: ANTI-SMOOTH MUSCLE AB 3 Units (0-19)
== END 2020-11-26 22:55 | disposition home health service (06) | DRG 871 ==
LOC: SED 17:37 → STU 21:11 → SMU 11-22 16:38
PROVIDERS: ADMIT Preventive Medicine Preventive Medicine/Occupational Environmental Medicine; ATTEND Preventive Medicine Preventive Medicine/Occupational Environmental Medicine
PROC: XW13325 Transfusion of Convalescent Plasma (Nonautologous) into Peripheral Vein, Percutaneous Approach, New Technology Group 5 (ICD-10-PCS; principal; 2020-11-13)
DX: A41.9 Sepsis, unspecified organism (principal); U07.1 COVID-19; J12.89 Other viral pneumonia; J96.01 Acute respiratory failure with hypoxia; J45.901 Unspecified asthma with (acute) exacerbation; B38.9 Coccidioidomycosis, unspecified; E46 Unspecified protein-calorie malnutrition; R74.01 Elevation of levels of liver transaminase levels; E88.09 Other disorders of plasma-protein metabolism, not elsewhere classified; D47.3 Essential (hemorrhagic) thrombocythemia; E87.6 Hypokalemia; D72.810 Lymphocytopenia; E78.5 Hyperlipidemia, unspecified; E83.52 Hypercalcemia; Z87.891 Personal history of nicotine dependence
CPT/HCPCS: 36415; 36600; 71045; 76700-TC; 80048; 80053; 80074; 80076; 82390; 82728; 82803-TC; 83516; 83540-TC; 83550-TC; 83605; 83615-TC; 85025; 85379; 85384-TC; 85610-TC; 85651-TC; 86038; 86140; 86738; 86886; 86900; 86901; 87040-TC; 93005; 94640; 94664; 94760; 96372; 96374; 97163; 99291; G0378; J0456; J0696; J1100; J1200; J1650; J3480; J7030; J7042; J7050; J7613; P9017; U0003

== ENCOUNTER 2022-04-19 11:39 | Inpatient (IN) | payer BC, MEDICAID ==
[~2022-04-19] VITALS: Ht 162.6 cm; Wt 63.5 kg
[~2022-04-19 11:39] MED LIST: ALBMDI INH; APIX2.5T PO; DEC4 PO; DOXY100C PO; oxygen
--- NOTE | 2022-04-19 11:49 | NUR ---
Patient to ER bed 5 to gown for evaluation. Side rails up. Report given to Edilma CADET.
--- NOTE | 2022-04-19 11:50 | NUR ---
Pt alert and oriented. Here from home reporting went to urgent care and was told she has COVID. Pt reports cough only. Afebrile when VS checked here. SpO2 91-93% on room air. Awaiting MD bray.
[2022-04-19 11:54] VITALS: BP_SYST 133
--- NOTE | 2022-04-19 12:43 | NUR ---
ER at bedside examining patient.
[2022-04-19 12:56] LABS: BASOPHILS # (AUTO) 0.1 K/uL (0.0-0.2); EOSINOPHILS % (AUTO) 0.1 % (0.0-4.0); HEMATOCRIT 42.9 % (36-48); HEMOGLOBIN 14.5 g/dL (12.0-16.0); LYMPHOCYTES # (AUTO) 2.2 K/uL (1.0-5.5); LYMPHOCYTES % (AUTO) 28.2 % (20.5-51.5); MEAN CORPUSCULAR HEMOGLOBIN 29 pg (27-31); MEAN CORPUSCULAR HGB CONC 34 % (32-36); MEAN CORPUSCULAR VOLUME 86 fL (79.0-98.0); MONOCYTES % (AUTO) 13.1 % (1.7-9.3); NEUTROPHILS # (AUTO) 4.6 K/uL (1.8-7.7); NEUTROPHILS % (AUTO) 57.6 % (40.0-70.0); PLATELET COUNT (AUTO) 255 K/uL (130-430); RED BLOOD CELL COUNT(AUTO) 4.97 MIL/uL (4.2-6.2); WHITE BLOOD COUNT (AUTO) 7.9 K/uL (4.8-10.8)
--- NOTE | 2022-04-19 13:07 | NUR ---
CXR being done at bedside
[2022-04-19 13:11] LABS: ANION GAP 6 (5-15); CALCIUM 8.7 mg/dL (8.4-11.0); CHLORIDE 102 mmol/L (98-107); CREATININE 0.71 mg/dL (0.55-1.30); GLUCOSE 97 mg/dL (70-99); POTASSIUM 3.8 mmol/L (3.5-5.1); SODIUM SERUM 134 mmol/L (136-145); UREA NITROGEN, BLOOD 13 mg/dL (8-21)
[2022-04-19 13:13] LABS: GFR AFRICAN AMERICAN 106 mL/min (>90)
[2022-04-19 13:17] LABS: ALANINE AMINOTRANSFERASE 31 U/L (12-78); ALBUMIN 3.6 g/dL (3.4-4.8); ASPARTATE AMINOTRANSFERASE 23 U/L (10-37); TOTAL BILIRUBIN 0.5 mg/dL (0.0-1.0)
--- NOTE | 2022-04-19 13:30 | NUR ---
Per Dr Crisostomo, pt to walk around in room to test oxygen saturation. Pt able to ambulate without distress, but is concerned for her breathing due to a history of asthma. Will continue to monitor closely.
--- NOTE | 2022-04-19 15:43 | NUR ---
Report given to Idalia CADET to assume care of patient
--- NOTE | 2022-04-19 16:42 | NUR ---
Swabbed for COVID. Sent to lab.
--- NOTE | 2022-04-19 17:21 | NUR ---
Admit bed requested Patient will be admitted to care of . Admitted to TELEMETRY unit. Diagnosis Covid 19 Observation (Yes or No) YES Orientation concerns or request close to nursing station (Yes or No) NO Covid Status POS Isolation requirements covid pos From Home (Yes or if No enter name of facility) home
--- NOTE | 2022-04-19 18:12 | NUR ---
PATIENT MADE AWARE OF POC. AWAITING BED PLACEMENT. PATIENT SITTING UP IN BED WITH NO ACUTE DISTRESS NOTED.
--- NOTE | 2022-04-19 19:15 | NUR ---
REPORT GIVEN TO CHICHI MEZT
[2022-04-19] MEDS ORDERED: SIMV20TA2 PO (19:33)
[2022-04-19] MEDS ORDERED: ASPI-859 PO (19:33)
--- NOTE | 2022-04-19 19:33 | NUR ---
Medication reconciliation completed with information provided by PT. Any prior medication reconciliation on file was reviewed and corrected.
--- NOTE | 2022-04-19 20:40 | NUR ---
admission to facility notification and personal belongings completed.
--- NOTE | 2022-04-19 21:20 | NUR ---
Patient will be admitted to care of Dr. Khan. Admitted to telemetry unit. Will go to room 124A. Belongings list completed. Complete and up to date summary report printed. SBAR report given to Ruth CADET at bedside with opportunity for questions.
[2022-04-19] MEDS ORDERED: HYDROcodone/ACETAMIN 5-325 MG TAB (NORCO/ VICODIN) PO PRN (21:45)
[2022-04-19] MEDS: AZITHROMYCIN 500 MG in NS 250 ML IV SCH (21:45)
[2022-04-19] MEDS ORDERED: ACETAMINOPHEN 325 MG TABLET PO PRN (21:45)
[2022-04-19] MEDS ORDERED: HYDROcodone/ACETAMIN 10-325 MG TAB PO PRN (21:45)
[2022-04-19] MEDS ORDERED: ONDANSETRON HCL 4 MG/2 ML VIAL IVP PRN (21:45)
[2022-04-19] MEDS: cefTRIAXone 1 GM IVPB PREMIX 50 ML IV SCH (21:45)
[2022-04-19] MEDS ORDERED: NALOXONE HCL 0.4 MG/ML AMP (NARCAN) IVP PRN ×2 (21:45)
[2022-04-19] MEDS ORDERED: LORazepam 2 MG/ML VIAL IVP PRN (21:45)
--- NOTE | 2022-04-19 21:50 | NUR ---
Pt arrived via gurney from ED to MST Rm 124-A. Pt A+O*4. Pt cc is cough -- Rapid + (Covid Positive). Pt w/o c/o any discomfort at this time. pt in isolation (droplets). Pt ambulatory. Call light in reach, bed in low position w wheels locked. SR up at [facility].
[2022-04-19] MEDS: NORMAL SALINE 5 ML DISP.SYRIN IVF SCH (22:00)
[2022-04-19] MEDS ORDERED: NORMAL SALINE 5 ML DISP.SYRIN IVF SCH (22:00)
[2022-04-19 22:07] VITALS: BP_SYST 122
[2022-04-19 23:00] VITALS: BP_SYST 122
[2022-04-19] MEDS ORDERED: ALBUTEROL SULFATE 0.083% 2.5 MG/3 ML VIAL.NEB INH SCH (23:00)
[2022-04-20] MEDS: DEXAMETHASONE SOD PHOSPHATE 10 MG/ML VIAL IVP SCH ×2 (01:05→20:51)
[2022-04-20] MEDS ORDERED: cefTRIAXone 1 GM IVPB PREMIX 50 ML IV ONE (01:07)
[2022-04-20] MEDS ORDERED: AZITHROMYCIN 500 MG/VIAL (ZITHROMAX) IV ONE (01:07)
--- NOTE | 2022-04-20 01:14 | NUR ---
Rocephin 50 mg IV started at 0114 and ended at 0144 hrs
--- NOTE | 2022-04-20 01:43 | NUR ---
Zithromycin 500 mg IV started at 0143 and ended at 0243
--- NOTE | 2022-04-20 04:48 | NUR ---
CONSULTATION PAGED/CALLED Reason for Consultation: COVID 19 Person Who was Notified: SAGAR Consulting Physician: HIPOLITO Help Desk Team Leader Specialty: ID Ordering Physician: MARITZA
[2022-04-20] MEDS: NORMAL SALINE 5 ML DISP.SYRIN IVF SCH ×3 (05:51→20:50)
[2022-04-20 06:55] LABS: BASOPHILS % (AUTO) 0.6 % (0.0-2.0); HEMATOCRIT 43.6 % (36-48); HEMOGLOBIN 14.8 g/dL (12.0-16.0); LYMPHOCYTES # (AUTO) 1.6 K/uL (1.0-5.5); LYMPHOCYTES % (AUTO) 23.8 % (20.5-51.5); MEAN CORPUSCULAR HEMOGLOBIN 29 pg (27-31); MEAN CORPUSCULAR HGB CONC 34 % (32-36); MEAN CORPUSCULAR VOLUME 86 fL (79.0-98.0); MONOCYTES # (AUTO) 0.2 K/uL (0.0-1.0); MONOCYTES % (AUTO) 2.6 % (1.7-9.3); NEUTROPHILS # (AUTO) 4.9 K/uL (1.8-7.7); PLATELET COUNT (AUTO) 264 K/uL (130-430); RED BLOOD CELL COUNT(AUTO) 5.05 MIL/uL (4.2-6.2); WHITE BLOOD COUNT (AUTO) 6.7 K/uL (4.8-10.8)
[2022-04-20] MEDS: IPRATROPIUM BROM 0.5 MG/2.5 ML VIAL.NEB (ATROVENT) INH SCH ×2 (07:00→12:15)
[2022-04-20 07:11] LABS: ALBUMIN 3.3 g/dL (3.4-4.8); CALCIUM 9.3 mg/dL (8.4-11.0); CREATININE 0.57 mg/dL (0.55-1.30); PHOSPHORUS 2.5 mg/dL (2.7-4.5); POTASSIUM 4.3 mmol/L (3.5-5.1); TOTAL BILIRUBIN 0.5 mg/dL (0.0-1.0)
--- NOTE | 2022-04-20 07:52 | NUR ---
MRSA SWAB SENT TO LAB
[2022-04-20 08:20] VITALS: BP_SYST 129
--- NOTE | 2022-04-20 08:20 | NUR ---
Opening Note Patient is sitting up in bed awake. A/O x4. No apparent distress noted. Provided patient with hygiene essentials. Call light within reach. Safety and fall precautions in place. All needs met.
[2022-04-20] MEDS: ASPIRIN 81 MG TABLET(ECOTRIN) PO SCH (08:28)
[2022-04-20] MEDS: ALBUTEROL MDI INHALATION 8 GM INH INH SCH ×2 (11:00→16:01)
[2022-04-20 13:17] VITALS: BP_SYST 122
--- NOTE | 2022-04-20 16:45 | NUR ---
Note Patient laying in bed awake watching television. Patient appears calm and relaxed. Call light within reach. Safety and fall precautions in place. All needs met.
[2022-04-20 16:48] VITALS: BP_SYST 115
--- NOTE | 2022-04-20 17:15 | NUR ---
Note Spoke with Dr. Navarro. He stated not to give remdesevir.
[2022-04-20] MEDS ORDERED: ENOXAPARIN SODIUM 30 MG/0.3 ML SYRINGE SUBCUT ONE (17:30)
[2022-04-20] MEDS ORDERED: CHOLECALCIFEROL (VITAMIN D3) 5,000 UNIT TABLET PO ONE (17:30)
[2022-04-20] MEDS: SIMVASTATIN 20 MG TABLET PO SCH (18:08)
--- NOTE | 2022-04-20 19:01 | NUR ---
Closing Note Patient sitting up in bed awake watching television. No apparent distress noted. Call light within reach. Safety and fall precautions in place. All needs met. Will endorse care to material handler 2nd shift RN.
--- NOTE | 2022-04-20 19:30 | NUR ---
OPENING NOTES: Patient received from AM shift. Patient is AA&Ox4 able to make needs known, denies any chest pain or SOB. Chest rise is even and unlabored and is currently being treated by RT. Normal heart sounds present and is now on Med-surg monitoring. Active BSx4, no pain with palpation, no distention noted. Patient ambulates independently and is continent of Bowel and Bladder. Patient is on respiratory isolation due to Covid pos status. Patient is currently stable and safety measures are in place. Will resume care and monitor throughout the shift.
[2022-04-20 20:00] VITALS: BP_SYST 116
[2022-04-20] MEDS: ASCORBIC ACID 500 MG TABLET PO SCH (20:50)
[2022-04-20] MEDS: cefTRIAXone 1 GM IVPB PREMIX 50 ML IV SCH (20:50)
[2022-04-20] MEDS: AZITHROMYCIN 500 MG in NS 250 ML IV SCH (20:51)
[2022-04-21] VITALS: BP_SYST 116
[2022-04-21] MEDS: ALBUTEROL MDI INHALATION 8 GM INH INH SCH ×6 (03:12→23:20)
[2022-04-21] MEDS: NORMAL SALINE 5 ML DISP.SYRIN IVF SCH ×3 (06:07→21:00)
[2022-04-21 06:11] LABS: BASOPHILS % (AUTO) 0.1 % (0.0-2.0); HEMATOCRIT 41.1 % (36-48); HEMOGLOBIN 13.8 g/dL (12.0-16.0); LYMPHOCYTES # (AUTO) 1.2 K/uL (1.0-5.5); LYMPHOCYTES % (AUTO) 17.5 % (20.5-51.5); MEAN CORPUSCULAR HEMOGLOBIN 29 pg (27-31); MEAN CORPUSCULAR HGB CONC 34 % (32-36); MEAN CORPUSCULAR VOLUME 85 fL (79.0-98.0); MONOCYTES # (AUTO) 0.2 K/uL (0.0-1.0); MONOCYTES % (AUTO) 2.9 % (1.7-9.3); NEUTROPHILS # (AUTO) 5.3 K/uL (1.8-7.7); NEUTROPHILS % (AUTO) 79.5 % (40.0-70.0); PLATELET COUNT (AUTO) 301 K/uL (130-430); RED BLOOD CELL COUNT(AUTO) 4.81 MIL/uL (4.2-6.2); RED CELL DISTRIBUTION WIDTH 14.4 % (9.0-15.0); WHITE BLOOD COUNT (AUTO) 6.7 K/uL (4.8-10.8)
[2022-04-21 06:34] LABS: ALBUMIN 3.3 g/dL (3.4-4.8); CALCIUM 8.8 mg/dL (8.4-11.0); CREATININE 0.72 mg/dL (0.55-1.30); POTASSIUM 4.7 mmol/L (3.5-5.1); TOTAL BILIRUBIN 0.2 mg/dL (0.0-1.0)
--- NOTE | 2022-04-21 06:44 | NUR ---
CLOSING NOTES: Patient is in bed resting no s/s of distress at this time. Chest rise is even and unlabored and patient remains on RA. Patient is able to verbalize needs and denies any pain or discomfort at this time and has call light within reach. All current shift needs have been met at this time, safety measures remain in place, and patient is stable at this time. Will differ current care to AM shift for continuity of care.
[2022-04-21 07:56] LABS: C-REACTIVE PROTEIN QUANT 2.8 mg/dL (0-0.5)
[2022-04-21 08:00] VITALS: BP_SYST 119
--- NOTE | 2022-04-21 08:00 | NUR ---
RECEIVED REPORT FROM NIGHTSHIFT RN. PT A/O X4. ABLE TO MAKE NEEDS KNOWN. NO SOB OR RESPIRATORY DISTRESS. ON RA. O2 SAT @ 100%. IV TO SL. OBSERVED WITH STEADY GAIT. DENIES PAIN. VSS. NEEDS ALL MET AT THIS TIME. ON DROPLET PRECAUTION. SAFETY MEASURES IN PLACE. WILL CONTINUE TO MONITOR CLOSELY.
[2022-04-21] MEDS: ENOXAPARIN SODIUM 30 MG/0.3 ML SYRINGE SUBCUT SCH (09:49)
[2022-04-21] MEDS: ASPIRIN 81 MG TABLET(ECOTRIN) PO SCH (09:51)
[2022-04-21] MEDS: ASCORBIC ACID 500 MG TABLET PO SCH ×2 (09:51→21:00)
[2022-04-21] MEDS: CHOLECALCIFEROL (VITAMIN D3) 5,000 UNIT TABLET PO SCH (09:51)
[2022-04-21 10:34] LABS: ERYTHROCYTE SEDIMENTATION RATE 17 MM/HR (0-20)
[2022-04-21 12:00] VITALS: BP_SYST 121
--- NOTE | 2022-04-21 14:49 | NUR ---
SPOKE WITH DR. JAY. CABALLERO TO GIVE A ONE TIME DOSE OF REMDESIVIR.
[2022-04-21 16:00] VITALS: BP_SYST 123
[2022-04-21] MEDS: SIMVASTATIN 20 MG TABLET PO SCH (18:00)
--- NOTE | 2022-04-21 19:30 | NUR ---
OPENING NOTES: Patient received from AM shift. Patient is AA&Ox4 able to make needs known. Denies any chest pain or SOB. Patient is on droplet isolation due to positive COVID Status. Patient is ambulatory and able to provide self care if supplies are provided. Patient is stable, safety measures are in place and call light is within reach. Will resume care and continue to monitor throughout the shift.
--- NOTE | 2022-04-21 19:30 | NUR ---
OPENING NOTES: received patient from AM shift for 0 change of shift. Patient is AA&OX4 able to make needs known, denies chest pain or SOB. Chest rise is even and unlabored on RA. Normal heart sounds present, S1 & S2 on Med-surg monitoring. Active BS x4, denies pain with palpation. Patient is ambulatory and continent of B&B. No skin issues are noted. Patient is stable, safety measures are in place, and patient has call light within reach. Will resume care and continue to monitor throughout the shift.
--- NOTE | 2022-04-21 19:30 | NUR ---
CLOSING: HYGIENIC CARE GIVEN TO PT. ORAL FLUIDS AND TRAY PROVIDED. LINENS AND GOWNS PROVIDED. ALL NEEDS MET. PT IN NO DISTRESS. NO SOB NOTED. REPORT GIVEN TO NIGHTSHIFT RN FRO CONTINUITY OF CARE.
[2022-04-21 20:00] VITALS: BP_SYST 119
[2022-04-21] MEDS: cefTRIAXone 1 GM IVPB PREMIX 50 ML IV SCH (20:55)
[2022-04-21] MEDS: DEXAMETHASONE SOD PHOSPHATE 10 MG/ML VIAL IVP SCH (20:59)
[2022-04-21] MEDS: AZITHROMYCIN 500 MG in NS 250 ML IV SCH (21:07)
[2022-04-22] VITALS: BP_SYST 125
--- NOTE | 2022-04-22 00:30 | NUR ---
ROUNDS: Patient is in bed resting no s/s of distress is noted. Patient is AA&O and able to make needs known, denying any current needs for the nurse to address at this time. Safety measures are in place, patient has call light within reach. Will continue to monitor.
[2022-04-22] MEDS: ALBUTEROL MDI INHALATION 8 GM INH INH SCH ×4 (03:20→15:31)
[2022-04-22] MEDS: NORMAL SALINE 5 ML DISP.SYRIN IVF SCH (05:54)
[2022-04-22 06:08] LABS: BASOPHILS % (AUTO) 0.3 % (0.0-2.0); HEMATOCRIT 41.1 % (36-48); HEMOGLOBIN 13.8 g/dL (12.0-16.0); LYMPHOCYTES # (AUTO) 1.2 K/uL (1.0-5.5); LYMPHOCYTES % (AUTO) 18.9 % (20.5-51.5); MEAN CORPUSCULAR HEMOGLOBIN 29 pg (27-31); MEAN CORPUSCULAR HGB CONC 34 % (32-36); MEAN CORPUSCULAR VOLUME 86 fL (79.0-98.0); MONOCYTES # (AUTO) 0.2 K/uL (0.0-1.0); MONOCYTES % (AUTO) 2.7 % (1.7-9.3); NEUTROPHILS % (AUTO) 78.1 % (40.0-70.0); PLATELET COUNT (AUTO) 330 K/uL (130-430); RED BLOOD CELL COUNT(AUTO) 4.77 MIL/uL (4.2-6.2); RED CELL DISTRIBUTION WIDTH 14.7 % (9.0-15.0); WHITE BLOOD COUNT (AUTO) 6.3 K/uL (4.8-10.8)
--- NOTE | 2022-04-22 06:43 | NUR ---
CLOSING NOTES: Patient is in bed resting no s/s of distress is noted at this time. Patient is AA&Ox4 able to verbalize needs has call light within reach. All current shift needs have been met at this time and patient is stable at this time. Safety measures remain in place, will differ further care to AM shift for continuity of care.
[2022-04-22 06:50] LABS: ALBUMIN 3.2 g/dL (3.4-4.8); CALCIUM 8.8 mg/dL (8.4-11.0); CREATININE 0.67 mg/dL (0.55-1.30); POTASSIUM 4.4 mmol/L (3.5-5.1); TOTAL BILIRUBIN 0.1 mg/dL (0.0-1.0)
[2022-04-22 07:50] LABS: C-REACTIVE PROTEIN QUANT 1.1 mg/dL (0-0.5)
[2022-04-22 08:10] VITALS: BP_SYST 123
[2022-04-22] MEDS: CHOLECALCIFEROL (VITAMIN D3) 5,000 UNIT TABLET PO SCH (09:00)
[2022-04-22] MEDS: ASPIRIN 81 MG TABLET(ECOTRIN) PO SCH (09:00)
[2022-04-22] MEDS: ASCORBIC ACID 500 MG TABLET PO SCH (09:00)
[2022-04-22] MEDS: ENOXAPARIN SODIUM 30 MG/0.3 ML SYRINGE SUBCUT SCH (09:01)
[2022-04-22 10:58] LABS: ERYTHROCYTE SEDIMENTATION RATE 18 MM/HR (0-20)
[2022-04-22 11:00] VITALS: BP_SYST 123
[2022-04-22] MEDS ORDERED: DOXY100T2 PO (11:06)
[2022-04-22] MEDS ORDERED: DEC4 PO (11:06)
[2022-04-22 16:32] VITALS: BP_SYST 139
== END 2022-04-22 18:50 | disposition home or self-care (01) | DRG 177 ==
LOC: SED 11:39 → STU 17:15 → OBSVTOIN 04-20 10:48 → SMU 04-20 16:05
PROVIDERS: ADMIT Preventive Medicine Preventive Medicine/Occupational Environmental Medicine; ATTEND Preventive Medicine Preventive Medicine/Occupational Environmental Medicine
PROC: XW033E5 Introduction of Remdesivir Anti-infective into Peripheral Vein, Percutaneous Approach, New Technology Group 5 (ICD-10-PCS; principal; 2022-04-22)
DX: U07.1 COVID-19 (principal); J12.82 Pneumonia due to coronavirus disease 2019; J96.01 Acute respiratory failure with hypoxia; J45.901 Unspecified asthma with (acute) exacerbation; J44.0 Chronic obstructive pulmonary disease with (acute) lower respiratory infection; I51.7 Cardiomegaly; D72.821 Monocytosis (symptomatic); Z87.891 Personal history of nicotine dependence; Z79.01 Long term (current) use of anticoagulants
CPT/HCPCS: 36415; 71045; 80053; 82728; 83735; 84100; 84484; 85025; 85379; 85651-TC; 86140; 93005; 94640; 94664; 99285; G0378; J0456; J0696; J1100; J1650; J7050

== ENCOUNTER 2023-10-28 13:25 | Emergency (ER) | payer BC, MEDICAID ==
[~2023-10-28] VITALS: Ht 154.9 cm; Wt 69.4 kg
[~2023-10-28 13:25] MED LIST changes: -APIX2.5T PO; +ASPI-859 PO; -DOXY100C PO; +DOXY100T2 PO; +SIMV-343 PO; -oxygen
[2023-10-28 13:35] VITALS: BP_SYST 171; PULSE 101; RESP 17; TEMP 97.7; O2SAT 95
== END 2023-10-28 13:55 | disposition left against medical advice (07) ==
LOC: SED 13:25
DX: U07.1 COVID-19 (principal); Z53.21 Procedure and treatment not carried out due to patient leaving prior to being seen by health care provider
CPT/HCPCS: 99281